=== PATIENT | female | born 1945 | race Caucasian/White ===

== ENCOUNTER → 2018-07-11 12:26 | Outpatient (CLI) | payer MEDICARE, SELFPAY ==
--- NOTE | 2018-07-11 | DI.RAD.S_ITS ---
This blank DEXA report has been sent in error by the PACS system. The correct and complete report will be forthcoming in 1-2 days. Thank you for your patience and understanding. Dictated by: Vasquez Lopez M.D. on 07/11/2018 at 13:42 Approved by: Vasquez Lopez M.D. on 07/11/2018 at 13:44
--- NOTE | 2018-07-11 | DI.MG.S_ITS ---
BILATERAL DIGITAL SCREENING MAMMOGRAM 3D/2D WITH CAD: 07/11/2018 CLINICAL: Routine screening. Comparison is made to exams dated: 04/03/2017 mammogram, 03/30/2016 mammogram, and 03/29/2015 mammogram - [facility]. The tissue of both breasts is heterogeneously dense. This may lower the sensitivity of mammography. Current study was also evaluated with a Computer Aided Detection (CAD) system. No significant masses, calcifications, or other findings are seen in either breast. There has been no significant interval change. IMPRESSION: NEGATIVE There is no mammographic evidence of malignancy. A 1 year screening mammogram is recommended.(07/12/2019) This exam was interpreted at Station ID: [id number]. NOTE: For mammograms, a report in lay terms will be sent to the patient. Approximately 15% of breast malignancies will not be visualized mammographically. In the management of a palpable breast mass, a negative mammogram must not discourage biopsy of a clinically suspicious lesion. Electronically Signed By: Norma chaudhry/irving:07/11/2018 14:38:50 letter sent: Normal Exam ACR BI-RADS Category 1: Negative [id number]
== END ==
PROVIDERS: Visit Provider Internal Medicine
DX: Z12.31 Encounter for screening mammogram for malignant neoplasm of breast (principal); M85.852 Other specified disorders of bone density and structure, left thigh; Z78.0 Asymptomatic menopausal state; Z82.62 Family history of osteoporosis; Z90.722 Acquired absence of ovaries, bilateral; Z87.891 Personal history of nicotine dependence
CPT/HCPCS: 77063; 77067; 77080

== ENCOUNTER 2018-07-19 06:08 | Emergency (ER) | payer MEDICARE, SELFPAY ==
[2018-07-19] VITALS (9 sets, daily range): BP systolic 118–127; BP diastolic 36–71; PULSE 56–66; RESP 13–17; TEMP 35.9; O2SAT 97–98; BMI 23.8
[2018-07-19] MEDS: SODIUM CHLORIDE 0.9% 1,000 ML 1000 ML IV ×2 (06:33→07:44)
[2018-07-19 06:35] LABS: Add Manual Diff / Slide Review NO; Basophils Percent Auto 1.3 % (0-2); Eosinophils Percent Auto 3.7 % (2-4); Hematocrit 37.4 % (36-46); Hemoglobin 12.4 g/dL (12.0-16.0); Lymphocytes Percent Auto 27.8 % (25-40); Mean Corpuscular HGB Conc 33.1 % (30-36); Mean Corpuscular Hemoglobin 31.2 PG (26-34); Mean Corpuscular Volume 94.2 fL (80-100); Monocytes Percent Auto 8.9 % (3-14); Neutrophils Absolute Auto 2800 /uL (3000-5900); Neutrophils Percent Auto 58.3 % (50-75); Platelet Count 226 X10^3/uL (150-400); Red Blood Cell Count 3.97 X10^6/uL (4.0-5.2); Red Cell Distribution Width 13.6 % (11.6-14.8); White Blood Cell Count 4.9 X10^3/uL (4.5-11.0)
--- NOTE | 2018-07-19 06:38 | ED_ITS ---
HPI - Dizziness <Emilia Mai DO - Last Filed: 07/19/18 18:38> General Chief Complaint: Dizziness Stated Complaint: dizzy, near syncope Time Seen by Provider: 07/19/18 06:18 Source: patient and EMS Mode of arrival: EMS Limitations: no limitations History of Present Illness HPI Narrative: Patient is a 73-year-old female who presents with dizziness and near syncope. She woke up in the middle night have a bowel movement. She says this never happens. She was on the toilet and fell extremely dizzy and lightheaded. She said was not a large bowel movement she was not straining. She did not pass out. She was extremely lightheaded. When she stood up she got extremely faint. And lowered to the ground. When EMS arrived they stood her up to try and get orthostatic vitals. Upon standing she became so weak and lightheaded they were unable to get a blood pressure is that she was lower back to the ground. She now is feeling better. She says she was feeling more dizzy with movement. She denies unilateral weakness she has not had any facial drooping or difficulty speaking. She has no heart palpitations chest pain. MD complaint: lightheadedness Related Data Home Medications Medication Instructions Recorded Confirmed Bupropion Hydrochloride mg PO QDAY #0 06/29/11 (#BUPROPION HCL) Conjugated Estrogens (ESTROGENS) mg TD #0 06/29/11 escitalopram oxalate [Lexapro] mg PO QDAY #0 06/29/11 levothyroxine [Synthroid] 0.125 mg PO #0 06/29/11 Previous Rx's Medication Instructions Recorded LIDOCAINE (LIDODERM) 1 - 3 ea TOPICAL QDAY #30 patch 07/03/16 estradiol [Vagifem] 10 mcg VG SEE INSTRUCTIONS #24 mcg 09/14/16 Allergies Allergy/AdvReac Type Severity Reaction Status Date / Time No Known Drug Allergies Allergy Verified 07/19/18 06:15 Review of Systems <DO Krystle Mendoza Last Filed: 07/19/18 18:38> Review of Systems All systems reviewed & are unremarkable except as noted in HPI and below Constitutional Denies chills, Denies fever(s), Denies frequent falls, Denies lethargy and Denies weakness ENT Ears, Nose, Mouth, and Throat: Reports dizziness Cardiovascular Reports as per HPI, Denies syncope, Denies dyspnea and Denies dyspnea on exertion Respiratory Denies cough, Denies dyspnea, Denies dyspnea on exertion and Denies wheezing Gastrointestinal Gastrointestinal: Denies abdominal pain, Denies change in bowel habits, Denies diarrhea, Denies nausea and Denies vomiting Genitourinary Denies hematuria, Denies flank pain, Denies urinary incontinence and Denies urinary urgency Musculoskeletal Denies back pain, Denies muscle weakness, Denies numbness and Denies tingling Integumentary/Breasts Denies pruritus, Denies erythema, Denies rash and Denies wounds Neurologic Reports as per HPI, Reports dizziness, Denies syncope, Denies frequent falls, Denies numbness, Denies tingling and Denies weakness Allergic/Immunologic Denies wheezing PFSH <Emilia Mai, DO - Last Filed: 07/19/18 18:38> Comment: PCP: Dr. Morfin Exam <Emilia Mai, DO - Last Filed: 07/19/18 18:38> Initial Vital Signs Initial Vital Signs: Vital Signs Temperature 96.7 F L 07/19/18 06:15 Pulse Rate 61 07/19/18 06:15 Respiratory Rate 15 07/19/18 06:15 Blood Pressure 119/36 L 07/19/18 06:15 Pulse Oximetry 97 07/19/18 06:15 GENERAL: Well-appearing, well-nourished and in no acute distress. HEENT: Head atraumatic,EOMI, pupils reactive, face symmetric, moist mucous membranes CARDIOVASCULAR: Regular rate and rhythm without murmurs, rubs or gallops. RESPIRATORY: Breath sounds equal bilaterally, no wheezes rales or rhonchi. ABDOMEN: Soft, nontender. Normoactive bowel sounds all 4 quadrants. No guarding or rebound. EXTREMITIES: Normal range of motion, no clubbing or edema. Neurovascularly intact NEUROLOGICAL: Alert and oriented x4.Normal gait and speech. Cranial nerves II through XII grossly intact. Sales Support Rep strength equal bilaterally notice our TRIA no aphasia, face is symmetric moving lower extremities equally sensation to soft touch intact SKIN: Warm, dry, no laceration, no petechiae, no rashes or lesions. <Modesto Vogt, DO - Last Filed: 07/19/18 19:18> Initial Vital Signs Initial Vital Signs: Vital Signs Temperature 96.7 F L 07/19/18 06:15 Pulse Rate 61 07/19/18 06:15 Respiratory Rate 15 07/19/18 06:15 Blood Pressure 119/36 L 07/19/18 06:15 Pulse Oximetry 97 07/19/18 06:15 Course <Emilia Mai DO - Last Filed: 07/19/18 18:38> Orders Ordered: Discontinued Medications Sodium Chloride (Normal Saline 0.9%) 1,000 mls @ 1,000 mls/hr IV CONT DEANNA Last Infusion: 07/19/18 07:39 Dose: 0 mls/hr Admin: 07/19/18 06:33 Dose: 1,000 mls/hr Sodium Chloride (Normal Saline 0.9%) 1,000 mls @ 1,000 mls/hr IV BOLUS ONE Stop: 07/19/18 08:39 Last Infusion: 07/19/18 08:45 Dose: 0 mls/hr Admin: 07/19/18 07:44 Dose: 1,000 mls/hr Ondansetron HCl (Zofran) 4 mg IV NOW ONE Stop: 07/19/18 06:28 Last Admin: 07/19/18 09:29 Dose: Not Given Vital Signs - 8 hr 07/19/18 06:15 07/19/18 06:24 07/19/18 07:50 Temperature 96.7 F L Pulse Rate 61 61 Pulse Rate [Orthostatic Lying] 59 L Pulse Rate [Orthostatic Sitting] 64 Pulse Rate [Orthostatic Standing] 66 Respiratory Rate 15 15 Blood Pressure 119/36 L 119/36 L Blood Pressure [Orthostatic Lying] 121/49 L Blood Pressure [Orthostatic Sitting] 121/71 Blood Pressure [Orthostatic Standing] 118/52 L Pulse Oximetry 97 <Modesto Vogt, DO - Last Filed: 07/19/18 19:18> Orders Ordered: Discontinued Medications Sodium Chloride (Normal Saline 0.9%) 1,000 mls @ 1,000 mls/hr IV CONT DEANNA Last Infusion: 07/19/18 07:39 Dose: 0 mls/hr Admin: 07/19/18 06:33 Dose: 1,000 mls/hr Sodium Chloride (Normal Saline 0.9%) 1,000 mls @ 1,000 mls/hr IV BOLUS ONE Stop: 07/19/18 08:39 Last Infusion: 07/19/18 08:45 Dose: 0 mls/hr Admin: 07/19/18 07:44 Dose: 1,000 mls/hr Ondansetron HCl (Zofran) 4 mg IV NOW ONE Stop: 07/19/18 06:28 Last Admin: 07/19/18 09:29 Dose: Not Given Reevaluation(s) Reevaluation #1: I have received sign out from Dr. Mai and have independently examined and interviewed the patient and . My findings are consistent with the above. Patient had a near syncopal episode with blood pressure in the 70s and was noted to be clammy. She had two large BMs of liquid stool. She denies recent travel, abx use, bad food, or exposure to ill persons. She feels MUCH better after fluid bolus. orthostatics improved. Vital Signs - 8 hr 07/19/18 06:15 07/19/18 06:24 07/19/18 07:50 Temperature 96.7 F L Pulse Rate 61 61 Pulse Rate [Orthostatic Lying] 59 L Pulse Rate [Orthostatic Sitting] 64 Pulse Rate [Orthostatic Standing] 66 Respiratory Rate 15 15 Blood Pressure 119/36 L 119/36 L Blood Pressure [Orthostatic Lying] 121/49 L Blood Pressure [Orthostatic Sitting] 121/71 Blood Pressure [Orthostatic Standing] 118/52 L Pulse Oximetry 97 MDM - Dizziness <Emilia Mai, - Last Filed: 07/19/18 18:38> Lab Data Attestation: I reviewed the patient's lab results. Result diagrams: 07/19/18 05:50 07/19/18 05:50 Lab Results 07/19/18 07/19/18 07/19/18 Range/Units 05:50 05:50 06:40 WBC 4.9 (4.5-11.0) X10^3/uL RBC 3.97 L (4.0-5.2) X10^6/uL Hgb 12.4 (12.0-16.0) g/dL Hct 37.4 (36-46) % MCV 94.2 (80-100) fL MCH 31.2 (26-34) PG MCHC 33.1 (30-36) % RDW 13.6 (11.6-14.8) % Plt Count 226 (150-400) X10^3/uL Neut % (Auto) 58.3 (50-75) % Lymph % (Auto) 27.8 (25-40) % [place] % (Auto) 8.9 (3-14) % Eos % (Auto) 3.7 (2-4) % Baso % (Auto) 1.3 (0-2) % Neut # (Auto) 2800 L (6114-0970) /uL Sodium 139 (137-145) mmol/L Potassium 3.8 (3.4-5.1) mmol/L Chloride 101 (98-107) mmol/L Carbon Dioxide 29 (22-32) mmol/L BUN 27 H (7-17) mg/dL Creatinine 0.80 (0.52-1.04) mg/dL Estimated GFR > 60.0 (>60) mL/min BUN/Creatinine Ratio 33.8 H (6-22) Glucose 110 (80-110) mg/dL Lactate 0.7 (0.7-2.1) mmol/L Calcium 9.3 (8.4-10.2) mg/dL Total Bilirubin 0.2 (0.2-1.3) mg/dL AST 25 (14-36) IU/L ALT 22 (9-52) IU/L Alkaline Phosphatase 64 (38-126) U/L Total Protein 7.0 (6.3-8.2) g/dL Albumin 4.2 (3.5-5.0) g/dL Globulin 2.8 (1.7-4.1) g/dL Albumin/Globulin Ratio 1.5 (1.0-2.8) ECG Data Attestation: I personally reviewed and interpreted this ECG as follows: Prior ECG tracings: available for review Interpretation: Normal sinus rhythm rate 54 GA interval 186 is, QRS 92, QTC [address] elevation or ST depression or T-wave inversions similar to previous EKG in 2011 MDM Narrative Medical decision making narrative: Patient signed out to Dr. Vogt for further management. Anticipate discharge home <Modesto Vogt, - Last Filed: 07/19/18 19:18> Lab Data Lab Results 07/19/18 07/19/18 07/19/18 Range/Units 05:50 05:50 06:40 WBC 4.9 (4.5-11.0) X10^3/uL RBC 3.97 L (4.0-5.2) X10^6/uL Hgb 12.4 (12.0-16.0) g/dL Hct 37.4 (36-46) % MCV 94.2 (80-100) fL MCH 31.2 (26-34) PG MCHC 33.1 (30-36) % RDW 13.6 (11.6-14.8) % Plt Count 226 (150-400) X10^3/uL Neut % (Auto) 58.3 (50-75) % Lymph % (Auto) 27.8 (25-40) % [place] % (Auto) 8.9 (3-14) % Eos % (Auto) 3.7 (2-4) % Baso % (Auto) 1.3 (0-2) % Neut # (Auto) 2800 L (2584-7823) /uL Sodium 139 (137-145) mmol/L Potassium 3.8 (3.4-5.1) mmol/L Chloride 101 (98-107) mmol/L Carbon Dioxide 29 (22-32) mmol/L BUN 27 H (7-17) mg/dL Creatinine 0.80 (0.52-1.04) mg/dL Estimated GFR > 60.0 (>60) mL/min BUN/Creatinine Ratio 33.8 H (6-22) Glucose 110 (80-110) mg/dL Lactate 0.7 (0.7-2.1) mmol/L Calcium 9.3 (8.4-10.2) mg/dL Total Bilirubin 0.2 (0.2-1.3) mg/dL AST 25 (14-36) IU/L ALT 22 (9-52) IU/L Alkaline Phosphatase 64 (38-126) U/L Total Protein 7.0 (6.3-8.2) g/dL Albumin 4.2 (3.5-5.0) g/dL Globulin 2.8 (1.7-4.1) g/dL Albumin/Globulin Ratio 1.5 (1.0-2.8) Discharge Plan Departure Patient Disposition: Home Clinical Impression: Diarrhea, Vaso vagal episode Discharge Date/Time: 07/19/18 09:32 Interventions: ED Discharge Assessment Last Done: 07/19/18 09:30 Instructions: Diarrhea Activity Restrictions/Additional Instructions: 1. Drink plenty of fluids with frequent small sips. 2. For the next 24 hours a clear liquid diet is advised. After that please employ a brat diet which would include bananas, rice, apples, toast. 3. Please continue to take your medications as directed. 4. Please follow-up with your doctor in the next 1-2 days. Call the office for an appointment. 5. Please return to the emergency Department for any worsening or persistent symptoms, such as pain, fever, or other bothersome symptoms Prescriptions: No Action levothyroxine [Synthroid] 125 MCG tablet 0.125 mg PO Qty: 0 RF: 0 escitalopram oxalate [Lexapro] 5 MG tablet PO QDAY Qty: 0 RF: 0 Bupropion Hydrochloride (#BUPROPION HCL) PO QDAY Qty: 0 RF: 0 Conjugated Estrogens (ESTROGENS) TD Qty: 0 RF: 0 LIDOCAINE (LIDODERM) 1 - 3 ea Topical QDAY Qty: 30 RF: 0 estradiol [Vagifem] 10 MCG tablet 10 mcg VG SEE INSTRUCTIONS Qty: 24 RF: 0
[2018-07-19 06:44] LABS: Alanine Aminotransferase 22 IU/L (9-52); Albumin 4.2 g/dL (3.5-5.0); Albumin Globulin Ratio 1.5 (1.0-2.8); Alkaline Phosphatase 64 U/L (38-126); Aspartate Aminotransferase 25 IU/L (14-36); BUN Creatinine Ratio 33.8 (6-22); Bilirubin Total 0.2 mg/dL (0.2-1.3); Blood Urea Nitrogen 27 mg/dL (7-17); Calcium 9.3 mg/dL (8.4-10.2); Carbon Dioxide 29 mmol/L (22-32); Chloride 101 mmol/L (98-107); Estimated Glomerular Filt Rate > 60.0 mL/min (>60); Globulin 2.8 g/dL (1.7-4.1); Glucose 110 mg/dL (80-110); HEMOLYSIS 16 (0-50); Potassium 3.8 mmol/L (3.4-5.1); Sodium 139 mmol/L (137-145)
--- NOTE | 2018-07-19 06:48 | PC.NURSE ---
pt c/o near syncope episodes x2 this am. pt states she got up to use the bathroom this morning when episodes occurred. pt states she was having bm this. per medics pt had hypotention while laying on the floor, they attempted to stand her up when she almost had a syncople episode.
[2018-07-19 06:58] LABS: Lactate (Lactic Acid) 0.7 mmol/L (0.7-2.1)
== END 2018-07-19 09:32 | disposition home or self-care (01) ==
PROVIDERS: Emergency Medicine; Emergency Provider Emergency Medicine
DX: R55 Syncope and collapse (principal); R19.7 Diarrhea, unspecified
CPT/HCPCS: 36415; 80053; 83605; 85025; 93005; 93010; 93041; 96360; 96361; 99284; 99285

== ENCOUNTER → 2018-10-03 11:33 | Outpatient (CLI) | payer MEDICARE, SELFPAY ==
[2018-10-03 12:34] LABS: Hematocrit 38.1 % (36-46); Mean Corpuscular HGB Conc 34.1 % (30-36); Mean Corpuscular Hemoglobin 31.3 PG (26-34); Mean Corpuscular Volume 91.8 fL (80-100); Platelet Count 216 X10^3/uL (150-400); Red Blood Cell Count 4.15 X10^6/uL (4.0-5.2); Red Cell Distribution Width 13.9 % (11.6-14.8); White Blood Cell Count 6.2 X10^3/uL (4.5-11.0)
[2018-10-03 13:17] LABS: Blood Urea Nitrogen 20 mg/dL (7-17); Calcium 9.4 mg/dL (8.4-10.2); Carbon Dioxide 28 mmol/L (22-32); Chloride 99 mmol/L (98-107); Estimated Glomerular Filt Rate > 60.0 mL/min (>60); Glucose 92 mg/dL (80-110); HEMOLYSIS < 15 (0-50); Potassium 4.5 mmol/L (3.4-5.1); Sodium 139 mmol/L (137-145)
== END ==
PROVIDERS: PCP Internal Medicine; Visit Provider Orthopaedic Surgery Orthopaedic Surgery of the Spine
DX: Z01.818 Encounter for other preprocedural examination (principal)
CPT/HCPCS: 36415; 80048; 85027; 93005

== ENCOUNTER → 2018-11-20 15:52 | Outpatient (CLI) | payer MEDICARE, SELFPAY ==
[2018-11-20 16:21] LABS: Appearance Urine UA CLEAR; Bilirubin Urine UA NEGATIVE (NEGATIVE); Color Urine UA YELLOW; Glucose Urine UA NEGATIVE (Negative); Ketones Urine UA NEGATIVE (NEGATIVE); Leukocyte Esterase Urine UA TRACE (NEGATIVE); Nitrite Urine UA NEGATIVE (Negative); Occult Blood Urine UA TRACE-INTACT (Negative); Protein Urine UA NEGATIVE (Negative); Specific Gravity Urine UA 1.015 (1.000-1.035); Urobilinogen Urine UA 0.2 E.U./dL (0.2)
[2018-11-20 16:44] LABS: Add Manual Diff / Slide Review NO; Basophils Absolute Auto 100 /uL (0-100); Basophils Percent Auto 1.3 % (0-2); Eosinophils Absolute Auto 100 /uL (0-450); Eosinophils Percent Auto 2.3 % (2-4); Hemoglobin 12.3 g/dL (12.0-16.0); Lymphocytes Absolute Auto 1100 /uL (1100-4500); Lymphocytes Percent Auto 19.4 % (25-40); Mean Corpuscular HGB Conc 33.3 % (30-36); Mean Corpuscular Hemoglobin 30.6 PG (26-34); Mean Corpuscular Volume 91.9 fL (80-100); Monocytes Absolute Auto 400 /uL (0-900); Monocytes Percent Auto 7.3 % (3-14); Neutrophils Absolute Auto 4100 /uL (1500-7000); Neutrophils Percent Auto 69.7 % (50-75); Platelet Count 242 X10^3/uL (150-400); Red Blood Cell Count 4.03 X10^6/uL (4.0-5.2); Red Cell Distribution Width 14.2 % (11.6-14.8); White Blood Cell Count 5.8 X10^3/uL (4.5-11.0)
[2018-11-20 17:22] LABS: Bacteria Urine Few (2-10); RBC Urine 0-1/HPF (0-5/HPF); WBC Urine 1-5/HPF (0-5/HPF)
[2018-11-20 17:57] LABS: Blood Urea Nitrogen 29 mg/dL (7-17); Calcium 9.5 mg/dL (8.4-10.2); Carbon Dioxide 25 mmol/L (22-32); Chloride 100 mmol/L (98-107); Estimated Glomerular Filt Rate 54.2 mL/min (>60); Glucose 93 mg/dL (80-110); HEMOLYSIS 44 (0-50); Potassium 4.7 mmol/L (3.4-5.1); Sodium 135 mmol/L (137-145)
== END ==
PROVIDERS: PCP Internal Medicine; Visit Provider Orthopaedic Surgery Orthopaedic Surgery of the Spine
DX: Z01.818 Encounter for other preprocedural examination (principal); N39.0 Urinary tract infection, site not specified
CPT/HCPCS: 36415; 80048; 81001; 85025; 93005

== ENCOUNTER 2018-11-26 07:29 | Inpatient (IN) | payer MEDICARE, SELFPAY ==
[2018-11-11 10:44] VITALS: BMI 23.3
[2018-11-26] VITALS (16 sets, daily range): BP systolic 84–127; BP diastolic 38–72; PULSE 65–92; RESP 10–19; TEMP 36–36.4; O2SAT 93–100; BMI 23.3
[2018-11-26] MEDS: LACTATED RINGERS 1,000 ML 42 ML IV ×3 (08:00→12:50)
--- NOTE | 2018-11-26 08:36 | PM.PREOP ---
Pre-operative Note Interval Note History & Physical reviewed/Exam performed by Physician: Yes Changes to H&P: No
[2018-11-26] MEDS: MIDAZOLAM 2 MG/2 ML VIAL IV (08:42)
[2018-11-26] MEDS: CEFAZOLIN 2 GM/100 ML FROZ.PIGGY IV ×2 (08:54→16:54)
--- NOTE | 2018-11-26 09:37 | SUR.OPER ---
Prone on spine table, head in foam head support, padded chest and pelvic supports, gel pad at knees, lower legs supported by pillows; nipples, genitalia and toes free of pressure, arms secured on foam padded arm boards at <90 degrees abduction. Tape over blanket at thigh secured to table.
[2018-11-26] MEDS: BUPIVACAINE LIPOSOME 266 MG/20 ML VIAL INJ (09:45)
[2018-11-26] MEDS: BUPIVACAINE 0.25% W/ EPI VIAL 30 ML INJ (09:48)
[2018-11-26] MEDS: SCOPOLAMINE 1 PATCH TOP (09:48)
--- NOTE | 2018-11-26 13:44 | DI.RAD.S_ITS ---
PROCEDURE: XR LUMBAR SPINE 2-3V INDICATIONS: L3-4 L4-5, L5-S1 TLIF TECHNIQUE: 2 views of the lumbar spine were acquired. COMPARISON: [facility], XR LUMBAR SPINE 2 OR 3 VIEWS, 09/19/2018, 14:48. FINDINGS: Bones: 5 [id number] vertebrae are present. There is normal bony alignment established after placement of transverse pedicle screws and vertical fixation rods spanning the L3-S1 levels with interbody disc cage prosthesis devices placed at L3-4, L4-5, and L5-S1 in expected positions. No vertebral body compression fractures. No suspicious bony lesions. Soft tissues: Overlying bowel gas pattern is normal. No suspicious soft tissue calcifications. IMPRESSION: Normal alignment established after TLIF from L3-S1 with interbody disc prosthesis placement and posterior fixation. Dictated by: Bruno Lowe M.D. on 11/26/2018 at 14:43 Approved by: Bruno Lowe M.D. on 11/26/2018 at 14:45
--- NOTE | 2018-11-26 13:53 | PM.OP.1 ---
Operative Date/Time/Diagnoses Date of procedure: 11/26/18 Time of procedure: 09:10 Pre-op diagnosis: 1. Lumbar scoliosis 2. Lumbar spondylolisthesis 3. Lumbar spinal stenosis with radiculopathy L3-S1 Post-op diagnosis: same Procedure & Clinicians Procedure: 1. L3-4, L4-5, L5-S1 Postero-lateral and posterior interbody fusion 2. L3-4, L4-5, L5-S1 interbody cage placement. 3. L3-4, L4-5, L5-S1 decompressive laminectomy with bilateral facetecomies 4. L3-4, L4-5, L5-S1 Posterior segmental instrumentation 5. Orchard of bone marrow from iliac crest 6. Utilization of microsurgical technique and operating microscope Same procedure as scheduled: Yes Indications: Patient has been having chronic back pain and worsening lumbar radiculopathy. Patient failed multiple conservative management with worsening pain weakness and numbness in her lower extremity. Patient has been having difficulty performing activity of daily living. After discussing risks benefits of treatment options, patient elected proceed with surgery. Surgeon: Bindu Palma Trim And Burr Operator: Belén Vasquez Click Yes if Unassisted: No Anesthesia Type: General Operative Notes Closure Type: primary Specimen(s): none sent Prosthetic devices, grafts, tissues, transplants, or devices: Globus revolve screws, Rise cages Applied: catheter Estimated Blood Loss (mL): 230 Blood products transfused: none Procedure in detail: Patient was seen in the preoperative area. Risks and benefits of the surgery was discussed with the patient. Informed consent was obtained from the patient and placed in the chart. Surgical site was marked. Patient was taken to the operative room. General anesthesia was administered. Prophylactic antibiotic was given to the patient less than 30 min before the incision was made. Patient was placed into a prone position on the Stiven table. Patient's back was then prepped and draped in the sterile fashion. Time-out was performed at this time. Using AP and lateral C-arm imaging the interval between L3-S1 was identified and marked on patient's back. A 3 inch incision 2 in from midline was made on the left side first. The fascia was incised in line with skin incision. Globus MARS retractors was placed inside the incision and docked onto the L3, L4 and L5 lamina. Using microsurgical technique and operating microscope, a L3, L4 and L5 laminectomy and L3-4, L4-5 L5-S1 facetectomy was performed using a Kerrison rongeur. The disc space at L3-4, L4-5, L5-S1 was identified. Patient was found have severe neural foramen stenosis at all 3 levels during the process of decompression which were all fully decompressed after the decompression was completed. More than 75% of the facet joints was removed during the process of decompression further requiring the fusion procedure due to the instability after the facetectomy. And a total diskectomy was performed at L3-4, L4-5, L5-S1 level. The endplates were decorticated using a rasp and shaver. The total diskectomy and decortication was performed at L3-4, L4-5, L5-S1 level in order to to accomplish a L3-4, L4-5, L5-S1 fusion. The local bone from the laminectomy and facetectomy was saved for local bone grafting. After the total diskectomy and decortication was completed, Globus viacell bone graft material was combined with local bone that was harvested earlier. At this time, a separate skin is incision was made over the iliac crest. A Jamshidi needle was inserted into the iliac crest through a separate skin incision. 5 cc of bone marrow aspiration was obtained through the separate skin incision using a Jamshidi needle from the iliac crest. The bone marrow aspiration was combined with local bone and the via cell bone grafting material. The bone grafting material was placed into the L3-4, L4-5, L5-S1 interbody space along with three cages, one expandable cage at each level. The cages were expanded to their maximum height using the torque limiting screwdriver. At this time a mirror image incision was made on the right side. The fascia was incised in line with the skin incision. Globus MARS retractor was inserted and docked onto the L3-4, L4-5, L5-S1 posterolateral gutter. Using the power drill, posterior-lateral decortication was performed at L3-4, L4-5, L5-S1 level until bleeding cortical bone was identified. The remaining bone grafting material was placed into the L3-4, L4-5 L5-S1 posterior lateral gutter he order to accomplish posterolateral fusion at the L3-4, L4-5 L5-S1 levels. Using the double C-arm technique, pedicle screws were placed into the L3, L4, L5, S1 pedicles bilaterally. This was done by placing the Jamshidi needle into the pedicles, then placing the guidewires over the Jamshidi needle, and finally placing the cannulated screws over the guidewires bilaterally. After the pedicle screws were placed, 2 titanium rods was locked into the heads of the pedicle screws using locking caps and torque limiting screwdriver. Total 8 pedicles screws were placed. After all the hardware was placed, and confirmed with AP and lateral C-arm imaging, the wound was then irrigated with sterile normal saline and packed with Ray-Rema gauze for 3 min to accomplish hemostasis. After the gauze was removed the deep fascia was closed with #1 Vicryl suture. The subcutaneous layer was closed with 2-0 Vicryl. The skin was closed with skin sommer. Patient tolerated the procedure well. There were no complications. Complications: none Condition: stable Disposition: PACU Plan for aftercare: Admit to inpatient hospital
--- NOTE | 2018-11-26 14:33 | SUR.PHASEI ---
Report called to ICU. Patient sleeping, arouses occasionally. BP cuff on upper arm; patient lying on her right side, supported by pillows.
--- NOTE | 2018-11-26 14:35 | SUR.PHASEI ---
does not acknowledge need for pain med. turned to right side (patient moving independently.)
--- NOTE | 2018-11-26 14:57 | SUR.PHASEI ---
1442 TO ICU 103. Patient awake/drowsy, responsive to questions. Resp unlabored, skin warm and dry. Back dressing remains CDI. Pillows @ back and between knees from the PACU to ICU. Sparks to gravity. Clothing taken to room. Stable. No questions/concerns from staff.
[2018-11-26] MEDS: SODIUM CHLORIDE 0.9% 1,000 ML 100 ML IV (15:20)
--- NOTE | 2018-11-26 15:27 | PC.NURSE ---
Rec'd pt from PACU at 1450. Pt is drowsy with brief eye opening to verbal stimuli. Oriented to person/place. Reports pain but quickly drifts back to sleep with decreased stimuli. Lungs are clear but diminished. Respirations are shallow and 12-14 with SPO2 92-93% on RA. Back dsg CDI. DPP bilaterally and pt has good sensation and movement to BLE. Initiated IVFs and bilat foot SCDs. at bedside. Report given to oncoming RN. ANKUR.
[2018-11-26] MEDS: ONDANSETRON 4 MG/2 ML INJ IV (15:48)
[2018-11-26] MEDS: HYDROMORPHONE 1 MG INJ 0.5 MG IV ×3 (17:07→22:09)
--- NOTE | 2018-11-26 19:40 | PC.NURSE ---
1545 - Pt drowsy. C/o nausea following reposition. Zofran given. Pt reports pain, however drifts off to sleep with conversation. 89% on RA, placed on 2L, awaiting increased wakefulness prior to administration of pain rx. Monitor. 1715 - Pt reposition multiple times. Ice pack not effective with pain control. Mild nausea persists, pt declines po intake more than a few ice chips. Dilaudid given. Monitor. (recheck of VS following administration, VSS, pt tolerated well.) 1915 - Pt again c/o of significant discomfort. Repositioned. this is terrible. I didn't know it was going to be like this. I have never had this kind of pain before. Pt c/o sharp muscle or nerve type pain to bilateral hips right > left. Continues to report mild nausea, declines po intake. Unable to give po r/t nausea. Dilaudid given for pain. Call light in reach.
--- NOTE | 2018-11-26 22:44 | PC.NURSE ---
pt arrived in unit around 2014. Pt A&OX3. 97% RA. cont. pulse ox on. pt slightly nauseous. pt rates her pain 04/15. administered IV dilaudid. lower back dressing cdi. IVF infusing. call light in reach. bed alarm active. physical assessment reviewed by this RN.
[2018-11-26] MEDS: OXYCODONE IR 5 MG TABLET 10 MG PO (23:27)
[2018-11-27] VITALS (9 sets, daily range): BP systolic 106–129; BP diastolic 43–64; PULSE 69–86; RESP 15–18; TEMP 36.3–36.8; O2SAT 98–100
[2018-11-27] MEDS: CEFAZOLIN 2 GM/100 ML FROZ.PIGGY IV (00:48)
[2018-11-27] MEDS: SODIUM CHLORIDE 0.9% 1,000 ML 100 ML IV (03:15)
[2018-11-27] MEDS: HYDROMORPHONE 1 MG INJ 0.5 MG IV (03:17)
[2018-11-27 05:30] LABS: Hematocrit 28.6 % (36-46); Hemoglobin 9.5 g/dL (12.0-16.0)
--- NOTE | 2018-11-27 05:45 | PC.NURSE ---
Patient is alert and oriented. Has received po pain med, and IV pain med. No nausea for this shift reported. Sparks had 250 ml out, oral intake is 300 for shift. Able to rest off and on in between cares. Attempts made to cluster cares when possible. Declined am dose of levothyroxine, concerned she will be charged $250.00 for medication. She stated that has happened to her before.
--- NOTE | 2018-11-27 07:31 | PM.PNPO.1 ---
Subjective Date Patient Seen: 11/27/18 Interval history: Patient seen bedside s/p L3-4,L4-5,L5-S1 TLIF. Patient is POD #1. Patient is doing well, her pain is controlled and she denies CP, SOB, N/V. She has not yet worked with PT. Exam Vital Signs (past 8 hours): - 11/27/18 00:55 11/27/18 04:44 Temperature 98.3 F 97.8 F Pulse Rate 77 80 Respiratory Rate 15 16 Blood Pressure 116/51 L 111/52 L Pulse Oximetry 100 100 Oxygen Delivery Method Nasal Cannula Oxygen Flow Rate 2 Narrative Exam Narrative: WDWN NAD A&Ox3. Dressing on lumbar spine CDI, ROM of BLE intact. NVI in BLE. Calves are soft and compressible. No focal deficits noted. Objective Labs Result Diagrams: 11/27/18 05:12 Labs: Laboratory Results - last 24 hr 11/27/18 05:12 Hgb 9.5 L Hct 28.6 L Assessment & Plan Post-op Postoperative Procedures Operation Date: 11/26/18 08:45 Actual Procedures Side Surgeon p L3-4,L4-5,L5-S1 TLIF w/Postrior Instru. Not Applicable Bindu Palma MD 1. POD #1 s/p above procedure-patient is doing well, continue with pain management and PT. Dispo-d/c home once pain is controlled and she is ambulating well with PT. Quality VTE Deep Vein Thrombosis/Pulmonary Embolism Present on Admission: No
[2018-11-27] MEDS: OXYCODONE IR 5 MG TABLET 10 MG PO ×6 (07:42→23:24)
[2018-11-27] MEDS: ACETAMINOPHEN 325 MG TABLET 650 MG PO ×3 (07:43→23:49)
[2018-11-27] MEDS: DEXAMETHASONE 4 MG TABLET 8 MG PO (08:19)
--- NOTE | 2018-11-27 09:11 | CM.DANOTE ---
DCP: Case received, EMR reviewed and met with patient. Introduced self and role. DCP template completed with information currently available. Patient is a 73 year old female who admitted yesterday morning to the care of the surgical team. PCP: Dr. Morfin. Payer: confirmed: Medicare/[employer]. Patient had procedure done today. She had L3-4, L4-5, L5-S1, Posterio Lateral Interbody Fusion. Patient has history of Lumbar Scoliosis, with chronic back pain. She stated that she has had back surgery before. Met with patient in room, pleasant, alert and oriented. Lives in [facility] with her , Jesus. Stated that she is independent at home, and currently uses no walker or cane. Confirmed with her that her primary doctor is Dr. Morfin. Patient has not yet been up working with physical therapy, and she stated, she has no concerns about going home after her surgery. P: DCP to continue to assess. Patient has not been up with physical therapy yet. She should be able to return home when she is stable enough for discharge. Antonia Car RN/Home Care Provider
--- NOTE | 2018-11-27 09:30 | PC.NURSE ---
0700- Safe handoff from NOC RN. Pt c/o severe pain at surgical site. Sparks catheter in place draining pale, yellow urine. IV infusing normal saline per orders as pt's BP is still low & she is not taking in adequate PO intake. 4 eyes on surgical dressing at spine. Pt states her left leg is numb; PA aware and PO Decadron ordered. 0745- Medicated w/ PO oxycodone & tylenol for surgical pain. Pt instructed to log roll. 0900- Refusing to take hospital meds as she states I will get billed too much at home so I don't want to take the hospital medications'. Pt instructed NOT to take her own home medications for risk of harm. Pt agreed to this. PT in room working with patient. 1015- Working w/ PT; when in standing position pt felt weak & dizzy. Machine would not register BP while standing but pt's BP was 106/43 sitting down and 112/55 when laying back down in bed. GISELLE Alonzo aware of symptomatic episode--NS bolus ordered and hung. Will cont to monitor. 1100- BP stabilized to 128/64. PO pain meds given for 8/10 surgical site pain. 1130- BP stable; IV fluids shut off per orders.
--- NOTE | 2018-11-27 09:36 | PT.IIE ---
Current Diagnoses Other idiopathic scoliosis, lumbar region (11/26/18) Spinal stenosis, lumbar region without neurogenic claudication (11/26/18) Other specified postprocedural states (11/26/18) Surgery Performed Operation Date: 11/26/18 08:45 Actual Procedures p L3-4,L4-5,L5-S1 TLIF w/Postrior Instru.(Not Applicable) - Bindu Palma MD Surgical History (Last Updated 11/11/18 @ 11:20 by Becca Zavala RN) History of bilateral tubal ligation (Acute) Hx of appendectomy (Acute) Hx of dilation and curettage (Acute) Hx of eye surgery (Acute ~2009) Hx of laminectomy (Acute 11/18/17) S/P epidural steroid injection (Acute) Medical History (Last Updated 11/11/18 @ 11:20 by Becca Zavala RN) Depression (Acute) Elevated cholesterol (Acute) Hypothyroid (Acute) Near syncope (Acute) Trochanteric bursitis of both hips (Acute) Physical Therapy Inpatient Evaluation/Re-Eval M1 PT/OT-IP Prior Functional Status Start: 11/27/18 11:43 Freq: NEEDED Status: Active Protocol: Document 11/27/18 09:36 AB (Rec: 11/27/18 11:56 AB [id number]) Medical Review Prior Functional Status Medical History Reviewed Yes Communication able to make needs known Mobility and Gait pt stated that she is independent with all mobilities and ambulation without AD Social History Household Members spouse Living Arrangements House Number of Floors (Floors) One Floor Number of Stairs To Enter/Railing? 4 steps to enter with R rail ascending Home Environment High Toilet Walk in Shower Home Equipment Front Wheel Walker Hand Held Shower Employment Status Retired M2 PT-IP Current Condition Start: 11/27/18 11:43 Freq: NEEDED Status: Active Protocol: Document 11/27/18 09:36 AB (Rec: 11/27/18 11:56 AB [id number]) Physical Therapy Current Condition Current Condition Evaluation Date 11/27/18 Treatment Diagnosis s/p L3-S1 fusion/lami; difficulty in walking Onset Date 11/26/18 Precautions Lumbar Precautions Log Roll No Twisting Limit Bending Lifting Restriction of 10 lbs Gait Belt above Incisional Area Other Precautions BP; h/o vasovagal episode M3 PT-IP Subjective Start: 11/27/18 11:43 Freq: NEEDED Status: Active Protocol: Document 11/27/18 09:36 AB (Rec: 11/27/18 11:56 AB [id number]) Subjective Physical Therapy Visit Type Type Initial Evaluation Visit Start Time 09:36 Visit Stop Time 10:25 Total Visit Minutes 49 Number of THERAPEUTIC RECREATION SPECIALIST Visits 0 Physical Therapy Visit Comments Patient Comments pt agreeable to do PT Therapy Pain Assessment Pain When Pain Assessed At Rest Pain Present Pain Present Pain Reported Location Back Intensity 8 Scale Used Numeric (1 - 10) Pain Management Techniques Re-positioning Timing of Activity with Medications M4 PT-IP Mobility and Gait Start: 11/27/18 11:43 Freq: NEEDED Status: Active Protocol: Document 11/27/18 09:36 AB (Rec: 11/27/18 11:56 AB [id number]) PT-Bed Mobility Assessment Rolling Type of Rolling Log Rolling Supine to Sit Supine to Sit Moderate Assistance 1 Person Assistance Sit to Supine Sit to Supine Maximum Assistance 1 Person Assistance PT-Transfer Assessment Sit to and From Stand Sit to and from Stand Maximum Assistance 1 Person Assistance Use of Upper Extremities Comments Mobility Comments BP in supine: 118/49 [place] 73. pt completed log roll supine to sit mod A and max cues for techniques. pt was able to sit on EOB CGA. c/o dizziness . BP: 108/45 KS 75. pt sat on EOB for ~ 1-2 more minutes. attempted sit to stand requiringmax A but pt unable to complete and stated that dizziness is worse. attempted to get another BP but unable . assisted pt to supine requiring max A and max cues. BP checked in supine. 111/52. positioned pt in bed. nurse in room. call light and table placed within reach. Gait Assessment Comments Gait Comments unable at this time PT-Balance Assessment Sitting Balance and Reactions Static Sitting Balance Ability Fair Dynamic Sitting Balance Ability Fair M5 PT-IP Objective Assessments Start: 11/27/18 11:43 Freq: NEEDED Status: Active Protocol: Document 11/27/18 09:36 AB (Rec: 11/27/18 12:00 AB [id number]) Orientation Orientation/Cognition Level of Alertness Alert Orientation Name Age Birthday Month Date Year Day of Week Place Situation Safety Awareness Understands Safety Issues Memory Description No Deficits Noted Gross Range of Motion Lower Extremity ROM Assessment Within Functional Limits Strength Lower Extremity Strength Assessment Left Impaired Knee 3+/5 Coordination Assessment Gross Coordination Gross Coordination WNL Sensation Assessment Sensation Gross Sensation WNL Muscle Tone Muscle Tone WNL Yes M6 PT-IP Treatment Start: 11/27/18 11:43 Freq: NEEDED Status: Active Protocol: Document 11/27/18 09:36 AB (Rec: 11/27/18 12:00 AB [id number]) Physical Therapy Treatment Education Education Provided Precautions Weight Bearing Status Post-Op Packet Safety M7 PT-IP Assessment and Plan Start: 11/27/18 11:43 Freq: NEEDED Status: Active Protocol: Document 11/27/18 09:36 AB (Rec: 11/27/18 12:00 AB [id number]) PT Summary Assessment and Plan Potential Rehabilitation Potential Fair Status of Condition at Evaluation Evolving Summary Impairments Pain ROM Strength Balance Coordination Sensation Tone Cognition Bed Mobility Transfers Gait Activity Tolerance Assessment Summary pt unable to tolerate much activity this morning with d/o dizziness. will continue to assess progress. pt plans to go home and spouse will assist pt at home. Goals Bed Mobility Goal Standby Assistance Transfer Goal Standby Assistance Front Wheeled Walker Gait Goal Standby Assistance Front Wheel Walker Gait Distance 150 Other Goals up/down 4 steps with R rail ascending SBA Days to Meet Goals 5 Frequency of Treatment Frequency Of Treatment Twice a Day Treatment Plan Physical Therapy Treatment Plan Bed Mobility Training Transfer Training Gait Training Therapeutic Exercise Balance Retraining Post Op Education Discharge Planning Hot or Cold Pack Neuromuscular Re-ed Coordination Retraining Manual Therapy Other Recommendations and Next Treatment transfers, ambulation, bed Focus mobility, caregiver training Recommendations To Nursing Amount of Assist Needed 2 Person Assist Discharge Recommendations PT Discharge Recommendations Home with 24/7 Assist SNF Rehab Other Discharge Recommendations depending on progress: home with 24/7 assist vs SNF
[2018-11-27] MEDS: SODIUM CHLORIDE 0.9% 1,000 ML 1000 ML IV (10:35)
--- NOTE | 2018-11-27 12:49 | PC.NURSE ---
patient reports pain improved to 4/10. brushing her teeth in bed. patient is no longer hypotensive after given bolus this am. see emar.
[2018-11-27] MEDS: DEXAMETHASONE 4 MG TABLET PO ×2 (14:11→21:48)
--- NOTE | 2018-11-27 15:10 | OT.IP.EVAL ---
Current Diagnoses Other idiopathic scoliosis, lumbar region (11/26/18) Spinal stenosis, lumbar region without neurogenic claudication (11/26/18) Other specified postprocedural states (11/26/18) Surgery Performed Operation Date: 11/26/18 08:45 Actual Procedures p L3-4,L4-5,L5-S1 TLIF w/Postrior Instru.(Not Applicable) - Bindu Palma MD Past Medical History (Last Updated 11/11/18 @ 11:20 by Becca Zavala RN) Depression (Acute) Elevated cholesterol (Acute) Hypothyroid (Acute) Near syncope (Acute) Trochanteric bursitis of both hips (Acute) Surgical History (Last Updated 11/11/18 @ 11:20 by Becca Zavala RN) History of bilateral tubal ligation (Acute) Hx of appendectomy (Acute) Hx of dilation and curettage (Acute) Hx of eye surgery (Acute ~2009) Hx of laminectomy (Acute 11/18/17) S/P epidural steroid injection (Acute) Occupational Therapy Inpatient Evaluation/Re-Eval M1 PT/OT-IP Prior Functional Status Start: 11/27/18 11:43 Freq: NEEDED Status: Active Protocol: Document 11/27/18 15:10 PJM (Rec: 11/27/18 17:52 PJM [id number]) Medical Review Prior Functional Status Medical History Reviewed Yes Diet/Fluid Consistency Regular Communication WNL Mobility and Gait Pt stated that she is independent with all mobilities and ambulation without AD Activities of Daily Living and IADL's Pt independent with all self care. does most IADLS and driving as pt limited by low back pain. Prior Functional Level (Other details) Supportive can provide 24 hr assist at d/c. Social History Household Members spouse Living Arrangements House Number of Floors (Floors) One Floor Number of Stairs To Enter/Railing? 4 steps to enter with R rail ascending Home Environment High Toilet Walk in Shower Home Equipment Front Wheel Walker Hand Held Shower Employment Status Retired Additional Social History Comment Pt plans to obtain shower seat with back and armrests. Resources given. No threshold on shower. M2 OT-IP Current Condition Start: 11/27/18 17:40 Freq: Status: Active Protocol: Document 11/27/18 15:10 PJM (Rec: 11/27/18 17:52 PJM [id number]) Occupational Therapy Current Condition Current Condition Evaluation Date 11/27/18 Treatment Diagnosis decreased slef care, mobility s/p L3-S1 PLIF Post Operative Precautions Lumbar Precautions Log Roll No Twisting Limit Bending Lifting Restriction of 10 lbs Gait Belt above Incisional Area M3 OT- IP Subjective and Pain Start: 11/27/18 17:40 Freq: Status: Active Protocol: Document 11/27/18 15:10 PJM (Rec: 11/27/18 17:52 PJ [id number]) OT- Subjective Occupational Therapy Visit Type Type Initial Evaluation Visit Start Time 14:47 Visit Stop Time 15:10 Total Visit Minutes 23 Notes Pt has been hypotensive and declined OOB this session; awaiting second P.T. session. Occupational Therapy Visit Comments Patient/Caregiver Goals to go home and be able to complete daily activities with less back pain OT Pain Assessment Pain When Pain Assessed At Rest Pain Present Pain Present Pain Reported Location Back Intensity 4 Scale Used Numeric (1 - 10) Description Aching Acute M4 OT- IP ADL's Start: 11/27/18 17:40 Freq: Status: Active Protocol: Document 11/27/18 15:10 PJM (Rec: 11/27/18 17:52 PJ [id number]) OT [id number] General Evaluation Self-Feeding Ability Independent OT ADL-Grooming General Evaluation Grooming Ability Independent Areas Needing Assistance Retrieving/Set-up of Grooming Items Comments OT Grooming Comments after set up in bed OT ADL-Oral Care General Eval Oral Care Ability Standby Assistance Areas of Assistance Brushing Teeth Comments Oral Care Comments after set up in bed OT ADL-Dressing General Eval Lower Body Dressing Ability Maximum Assistance Assistive Devices Dressing Assistive Devices Long Handled Shoe Horn Comments OT Dressing Comments Provided long shoe horn at pt request as she wears slip on shoes. Pt states she rarely wears socks so declines sock aid. Pt agreed to try business services vice president for lower body dressing in AM. Hypotension limited OOB activity today. OT ADL-Toileting General Evaluation Toileting Ability Total Assistance Areas Needing Assistance Empty Catheter or Colostomy Comments OT Toileting Comments pt still has thorne in place OT ADL-Bathing Comments OT Bathing Comments to be assessed as activity tolerance improves M5 OT- IP IADL's Start: 11/27/18 17:40 Freq: Status: Active Protocol: Document 11/27/18 15:10 PJM (Rec: 11/27/18 17:52 PJ [email or web address]) OT-Instrumental Activities of Daily Living Deficits IADL Deficits Identified Deficits Home Safety Awareness Awareness of Need for Assistance at Home Good Awareness Ability to Problem Solve Emergency Able to Problem Solve Situations Medication Management Medication Management No Deficits Identified Money Management Money Management No Deficits Identified Meal Preparation Meal Preparation Caregiver Provides Assist Meal Preparation Comments can assist until pt able Court Monitor Court Monitor Caregiver Provides Assist Court Monitor Comments does cleaning and they have needle felt making machine operator every 2 months Driving Driving Caregiver Provides Assist Driving Comments does most of the driving M6 OT- IP Functional Cognition Start: 11/27/18 17:40 Freq: Status: Active Protocol: Document 11/27/18 15:10 PJM (Rec: 11/27/18 17:52 PJ [email or web address]) Cognitive Factors Limiting Selfcare Function Cognitive Ability Level of Alertness Alert Patient Orientation Name Age Birthday Month Date Year Day of Week Place Situation Attention Span Ability Capable of Focused Attention Capable of Sustained Attention Ability to Follow Commands Able to Follow One Step Commands Memory Description No Deficits Noted Safety Awareness No Deficits Noted Problem Solving Ability No deficits Noted Executive Function Ability No Deficits Noted OT- Vision and Hearing OT- Hearing Assessment OT- Hearing Assessment WFL OT- Vision Assessment Visual Acuity WFL M7 OT- IP Mobility and Balance Start: 11/27/18 17:40 Freq: Status: Active Protocol: Document 11/27/18 15:10 PJM (Rec: 11/27/18 17:52 PJ [email or web address]) OT-Transfer Assessment Comments Mobility Comments did not occur due to hypotension OT- Gait Assessment Comments Gait Ability Comments pt has not yet ambulated with P.T. due to hypotension OT- Balance Assessment Comments Other Balance Tests/Deviations/Treatment to be assessed : M8 OT- IP Objective Assessments Start: 11/27/18 17:40 Freq: Status: Active Protocol: Document 11/27/18 15:10 PJM (Rec: 11/27/18 17:52 PJ [email or web address]) OT Gross Range of Motion Upper Extremity Range of Motion Assessment Within Functional Limits OT Strength Upper Extremity Strength Assessment Within Functional Limits OT- Coordination Assessment Comments Coordination Comments BUE WNL OT-Muscle Tone Assessment Muscle Tone WNL Yes OT Sensation Assessment Comments Summary Comments BUE WNL Edema Edema Absent M9 OT- IP Assessment and Plan Start: 11/27/18 17:40 Freq: Status: Active Protocol: Document 11/27/18 15:10 PJAbby (Rec: 11/27/18 17:52 PJM [id number]) OT Summary Assessment and Plan Potential Rehabilitation Potential Good Analytic Complexity at Evaluation Low Summary OT Impairments Pain Functional Mobility Grooming Dressing Toileting Bathing Toilet Transfers Shower Transfers Progress Towards Goals Slow Progress due to Medical Issues Assessment Summary Low complexity OT assessment completed as limited by hypotension and post op pain today. Pt currently has performance deficits in all functional mobility/transfers, standing grooming, lower body dressing, bathing and toielting. Plan 1-2 additional OT visits to address the goals below. Anticipate pt will d/c home with 24 hr assist from supportive when medically stable and clears P.T. Goals Grooming Goal Independent Dressing Goal Independent Long Handled Shoe Horn Sock Lining Examiner Toileting Goal Independent Bathing Goal Standby Assistance Toilet Transfer Goal Independent Shower Transfer Goal Standby Assistance Patient/Caregiver Education Goal Demonstrate Post-Op Precautions Demonstrate Energy Conservation and Pacing Caregiver Independent Assisting Patient Days to Meet Goals 3 Frequency of Treatment Frequency Of Treatment Once a Day Treatment Plan OT Treatment Plan ADL Training Functional Mobility Patient/Family Education Discharge Planning Discharge Recommendations OT Discharge Recommendations Home with 24/ Assist Home Equipment Needs shower seat
--- NOTE | 2018-11-27 16:04 | PT.IPTN ---
Current Diagnoses Other idiopathic scoliosis, lumbar region (11/26/18) Spinal stenosis, lumbar region without neurogenic claudication (11/26/18) Other specified postprocedural states (11/26/18) Surgery Performed Operation Date: 11/26/18 08:45 Actual Procedures p L3-4,L4-5,L5-S1 TLIF w/Postrior Instru.(Not Applicable) - Bindu Palma MD Physical Therapy Treatment Note M2 PT-IP Current Condition Start: 11/27/18 11:43 Freq: NEEDED Status: Active Protocol: Document 11/27/18 09:36 AB (Rec: 11/27/18 11:56 AB [id number]) Physical Therapy Current Condition Current Condition Evaluation Date 11/27/18 Treatment Diagnosis s/p L3-S1 fusion/lami; difficulty in walking Onset Date 11/26/18 Precautions Lumbar Precautions Log Roll No Twisting Limit Bending Lifting Restriction of 10 lbs Gait Belt above Incisional Area Other Precautions BP; h/o vasovagal episode M3 PT-IP Subjective Start: 11/27/18 11:43 Freq: NEEDED Status: Active Protocol: Document 11/27/18 15:54 SA (Rec: 11/27/18 16:04 SA [id number]) Subjective Physical Therapy Visit Type Type Treatment Note Visit Start Time 15:20 Visit Stop Time 15:51 Total Visit Minutes 31 Number of INDUSTRIAL RELATIONS DIRECTOR Visits 1 Physical Therapy Visit Comments Patient Comments Pt at rest in bed and feels her back pain is under control . Agreeable to PT. Patient Goals To get back home with . Therapy Pain Assessment Pain When Pain Assessed During Mobility Pain Present Pain Present Pain Reported Location Back Intensity 2 Scale Used Numeric (1 - 10) Pain Management Techniques Re-positioning Timing of Activity with Medications M4 PT-IP Mobility and Gait Start: 11/27/18 11:43 Freq: NEEDED Status: Active Protocol: Document 11/27/18 15:54 SA (Rec: 11/27/18 16:04 SA [id number]) PT-Bed Mobility Assessment Rolling Type of Rolling Log Rolling Roll to Right Level of Assist Contact Guard Assistance Supine to Sit Supine to Sit Minimal Assistance 1 Person Assistance Sit to Supine Sit to Supine Minimal Assistance 1 Person Assistance Scooting Scooting to Edge of Bed Contact Guard Assistance Scooting Up and Down in Bed Contact Guard Assistance PT-Transfer Assessment Sit to and From Stand Sit to and from Stand Minimal Assistance 1 Person Assistance Use of Upper Extremities Equipment Transfer Assistive Device Gait Belt Front Wheeled Walker Orthotic/Prosthetic Devices or Brace: No Transfers Transfer Destination Bed Transfer Technique Stand Step Pivot Transfer Ability Level of Assist Contact Guard Assistance Comments Mobility Comments BP prior to session 125/60. Education for log roll technique and pt able to execute with min A for Sup<> Sit. BP at EOB 122/55. Sit to stand from EOB with CGA. Pt moves very slow and segmentally, very gaurded. No increase in pain levels with activity though. Gait Assessment Gait Gait Assistance Required: Minimum Assistance Distance (Feet) 4 Able to Maintain Weight Bearing Status Yes During Gait Assistive Devices Assistive Device Gait Belt Front Wheeled Walker Orthotic/Prosthetic Devices or Brace: No Gait Deviations General Gait Pattern Decreased Stride Length Factors Limiting Gait Function Factors Limiting Gait Function Decreased Activity Tolerance Decreased Sensation Decreased Strength Comments Gait Comments Pt walked 4 feet before becoming dizzy, sat at bottom EOB. BP checked at 95/50 after short stand and walk. M5 PT-IP Objective Assessments Start: 11/27/18 11:43 Freq: NEEDED Status: Active Protocol: Document 11/27/18 09:36 AB (Rec: 11/27/18 12:00 AB [id number]) Orientation Orientation/Cognition Level of Alertness Alert Orientation Name Age Birthday Month Date Year Day of Week Place Situation Safety Awareness Understands Safety Issues Memory Description No Deficits Noted Gross Range of Motion Lower Extremity ROM Assessment Within Functional Limits Strength Lower Extremity Strength Assessment Left Impaired Knee 3+/5 Coordination Assessment Gross Coordination Gross Coordination WNL Sensation Assessment Sensation Gross Sensation WNL Muscle Tone Muscle Tone WNL Yes M6 PT-IP Treatment Start: 11/27/18 11:43 Freq: NEEDED Status: Active Protocol: Document 11/27/18 15:54 SA (Rec: 11/27/18 16:04 [id number]) Physical Therapy Treatment Exercises Exercises Ankle Pumps Gluteal Sets Education Education Provided Precautions Weight Bearing Status Post-Op Packet Safety M7 PT-IP Assessment and Plan Start: 11/27/18 11:43 Freq: NEEDED Status: Active Protocol: Document 11/27/18 15:54 SA (Rec: 11/27/18 16:04 SA [id number]) PT Summary Assessment and Plan Potential Rehabilitation Potential Fair Status of Condition at Evaluation Evolving Summary Impairments Pain ROM Strength Balance Coordination Sensation Tone Cognition Bed Mobility Transfers Gait Activity Tolerance Assessment Summary Pt able to stand and ambualte short distance this afternoon but BP did drop with activity. Pain levels low and not affected by activity. Pt understands spinal precautions . present for treatment and helpful to patient. Frequency of Treatment Frequency Of Treatment Twice a Day Treatment Plan Physical Therapy Treatment Plan Bed Mobility Training Transfer Training Gait Training Therapeutic Exercise Balance Retraining Post Op Education Discharge Planning Hot or Cold Pack Neuromuscular Re-ed Coordination Retraining Manual Therapy Recommendations To Nursing Amount of Assist Needed 2 Person Assist Discharge Recommendations PT Discharge Recommendations Home with 29/04 Assist SNF Rehab
[2018-11-27] MEDS: hydrOXYzine pamoate 25 MG CAPSULE PO (23:50)
[2018-11-28] VITALS: BP 138/60; PULSE 87; RESP 18; TEMP 36.6; O2SAT 98
[2018-11-28] MEDS: OXYCODONE IR 5 MG TABLET 10 MG PO ×3 (02:24→11:50)
[2018-11-28 04:00] VITALS: BP 108/49; PULSE 75; RESP 18; TEMP 36.9; O2SAT 93
[2018-11-28] MEDS: DEXAMETHASONE 4 MG TABLET PO ×2 (05:50→13:51)
[2018-11-28] MEDS: LEVOTHYROXINE 75 MCG TABLET PO (05:50)
[2018-11-28 08:00] VITALS: BP 109/38; PULSE 90; RESP 18; TEMP 36.6; O2SAT 98
[2018-11-28] MEDS: LACTATED RINGERS 1,000 ML 100 ML IV ×2 (09:06→19:37)
--- NOTE | 2018-11-28 09:39 | P.PN_ITS ---
Subjective Date Patient Seen: 11/28/18 Interval history: Patient seen bedside s/p L3-4,L4-5,L5-S1 TLIF POD #2. Patient states that her pain has improved and that she feels less dizzy. She had orthostatic hypotension with PT yesterday but her BP stabilized after a fluid bolus. She denies N/V, CP, SOB, numbness/tingling. She has not really had a full session with PT yet, but I was able to get her sitting on the side of the bed with her feet dangling with the assistance of the nurse. She tolerated this position well. Exam Vital Signs (past 8 hours): - 11/28/18 04:00 11/28/18 08:00 Temperature 98.4 F 97.9 F Pulse Rate 75 90 Respiratory Rate 18 18 Blood Pressure 108/49 L 109/38 L Pulse Oximetry 93 98 Oxygen Delivery Method Room Air Oxygen Flow Rate 0 Narrative Exam Narrative: WDWN NAD A&Ox3. Dressing on lumbar spine is CDI, no signs of drainage. Minimal erythema around the surgical site. Calves are soft and comp ressible with full ROM of the lower extremities. No focal deficits noted. Objective Labs Result Diagrams: 11/27/18 05:12 Assessment & Plan Post-op Postoperative Procedures Operation Date: 11/26/18 08:45 Actual Procedures Side Surgeon p L3-4,L4-5,L5-S1 TLIF w/Postrior Instru. Not Applicable Bindu Palma MD 1. s/p above procedure POD #2- BP has stabilized, continue working with PT and pain control. 2. Post-operative anemia due to acute blood loss-stable. Repeat labs in AM. Dispo-in the next day or two if medically stable and moving well with PT. Quality VTE Deep Vein Thrombosis/Pulmonary Embolism Present on Admission: No
--- NOTE | 2018-11-28 09:45 | OT.IP.TRT ---
Current Diagnoses Other idiopathic scoliosis, lumbar region (11/26/18) Spinal stenosis, lumbar region without neurogenic claudication (11/26/18) Other specified postprocedural states (11/26/18) Surgery Performed Operation Date: 11/26/18 08:45 Actual Procedures p L3-4,L4-5,L5-S1 TLIF w/Postrior Instru.(Not Applicable) - Bindu Palma MD Occupational Therapy Treatment Note M2 OT-IP Current Condition Start: 11/27/18 17:40 Freq: Status: Active Protocol: Document 11/27/18 15:10 PJM (Rec: 11/27/18 17:52 PJM [id number]) Occupational Therapy Current Condition Current Condition Evaluation Date 11/27/18 Treatment Diagnosis decreased slef care, mobility s/p L3-S1 PLIF Post Operative Precautions Lumbar Precautions Log Roll No Twisting Limit Bending Lifting Restriction of 10 lbs Gait Belt above Incisional Area M3 OT- IP Subjective and Pain Start: 11/27/18 17:40 Freq: Status: Active Protocol: Document 11/28/18 09:34 [facility] (Rec: 11/28/18 09:45 [facility] [id number]) OT- Subjective Occupational Therapy Visit Type Type Treatment Note Visit Start Time 09:00 Visit Stop Time 09:30 Total Visit Minutes 30 Occupational Therapy Visit Comments Patient Comments Pt willing to get up after eating breakfast. Patient/Caregiver Goals to go home and be able to complete daily activities with less back pain OT Pain Assessment Pain When Pain Assessed At Rest Pain Present Pain Present Pain Reported Location Back Intensity 3 Scale Used Numeric (1 - 10) Description Aching Acute M4 OT- IP ADL's Start: 11/27/18 17:40 Freq: Status: Active Protocol: Document 11/28/18 09:34 [facility] (Rec: 11/28/18 09:45 [facility] [id number]) OT ADL-Grooming General Evaluation Grooming Ability Standby Assistance Areas Needing Assistance Retrieving/Set-up of Grooming Items Comments OT Grooming Comments Pt able to do own grooming needs while standing with FWW and started to feel a little dizzy and then needing to sit down to the recliner. BP sitting EOB 109/38, 108/52 standing , nursing started fluids with pt , after sitting to recliner after doing grooming 98/56 and after sitting in recliner for a few minutes 121/44. BP numbers swimming pool maintenance supervisor to aid. OT ADL-Oral Care General Eval Oral Care Ability Independent OT ADL-Dressing General Eval Lower Body Dressing Ability Maximum Assistance Comments OT Dressing Comments Pt states will just have assist with dressing as trying to cross her legs over to assist but unable to get legs crossed without discomfort. Encouraged pt to use digital media manager for LB dressing needs. Data Control Clerk Supervisor given to pt. OT ADL-Toileting General Evaluation Toileting Ability Total Assistance Areas Needing Assistance Empty Catheter or Colostomy Comments OT Toileting Comments pt still has thorne in place OT ADL-Bathing Comments OT Bathing Comments Pt looking at ordering shower chair with back and arms today . M5 OT- IP IADL's Start: 11/27/18 17:40 Freq: Status: Active Protocol: Document 11/27/18 15:10 PJM (Rec: 11/27/18 17:52 PJM [id number]) OT-Instrumental Activities of Daily Living Deficits IADL Deficits Identified Deficits Home Safety Awareness Awareness of Need for Assistance at Home Good Awareness Ability to Problem Solve Emergency Able to Problem Solve Situations Medication Management Medication Management No Deficits Identified Money Management Money Management No Deficits Identified Meal Preparation Meal Preparation Caregiver Provides Assist Meal Preparation Comments can assist until pt able Orthodontic Band Maker Orthodontic Band Maker Caregiver Provides Assist Orthodontic Band Maker Comments does cleaning and they have occupational health nurse manager every 2 months Driving Driving Caregiver Provides Assist Driving Comments does most of the driving M6 OT- IP Functional Cognition Start: 11/27/18 17:40 Freq: Status: Active Protocol: Document 11/28/18 09:34 [facility] (Rec: 11/28/18 09:45 [facility] [id number]) Cognitive Factors Limiting Selfcare Function Cognitive Ability Level of Alertness Alert Patient Orientation Name Age Birthday Month Date Year Day of Week Place Situation Attention Span Ability Capable of Focused Attention Capable of Sustained Attention Ability to Follow Commands Able to Follow One Step Commands Memory Description No Deficits Noted Safety Awareness Underestimates Need for Assistance Cognitive Comments Cognitive Assessment Comments Pt needing cues to go and sit as states was getting dizzy while standing. M7 OT- IP Mobility and Balance Start: 11/27/18 17:40 Freq: Status: Active Protocol: Document 11/28/18 09:34 [facility] (Rec: 11/28/18 09:45 [facility] [email or web address]) OT-Transfer Assessment Sit to and From Stand Sit to and from Stand Moderate Assistance 1 Person Assistance Transfers Transfer Ability Contact Guard Assistance Minimal Assistance 1 Person Assistance Technique Transfer Destination Chair Devices Transfer Assistive Devices Gait Belt Front Wheeled Walker Comments Mobility Comments MODA to come to stand and after up on her feet CGA to JESSICA for transfer with FWW. Pt only able to tolerate grooming while up at the sink and then had to sit in recliner. OT- Balance Assessment Sitting Balance and Reactions Static Sitting Balance Ability Normal Dynamic Sitting Balance Ability Normal Standing Balance and Reactions Static Standing Balance Ability Good M8 OT- IP Objective Assessments Start: 11/27/18 17:40 Freq: Status: Active Protocol: Document 11/27/18 15:10 PJM (Rec: 11/27/18 17:52 PJM [id number]) OT Gross Range of Motion Upper Extremity Range of Motion Assessment Within Functional Limits OT Strength Upper Extremity Strength Assessment Within Functional Limits OT- Coordination Assessment Comments Coordination Comments BUE WNL OT-Muscle Tone Assessment Muscle Tone WNL Yes OT Sensation Assessment Comments Summary Comments BUE WNL Edema Edema Absent M9 OT- IP Assessment and Plan Start: 11/27/18 17:40 Freq: Status: Active Protocol: Document 11/28/18 09:34 [facility] (Rec: 11/28/18 09:45 [facility] [email or web address]) OT Summary Assessment and Plan Potential Rehabilitation Potential Good Analytic Complexity at Evaluation Low Summary OT Impairments Pain Functional Mobility Grooming Dressing Toileting Bathing Toilet Transfers Shower Transfers Progress Towards Goals Slow Progress due to Medical Issues Assessment Summary Pt main barriers are steps, activity tolerance, and needing one person assist for all Adl needs at this time. Pending family training with , pt may needs short skilled rehab vs 29/04 assist from . Goals Grooming Goal Independent Dressing Goal Independent Long Handled [place] Data Control Clerk Supervisor Toileting Goal Independent Bathing Goal Standby Assistance Toilet Transfer Goal Independent Shower Transfer Goal Standby Assistance Patient/Caregiver Education Goal Demonstrate Post-Op Precautions Demonstrate Energy Conservation and Pacing Caregiver Independent Assisting Patient Days to Meet Goals 3 Frequency of Treatment Frequency Of Treatment Once a Day Treatment Plan OT Treatment Plan ADL Training Functional Mobility Patient/Family Education Discharge Planning Other Treatment Recommendations and Next Shower and practice with LB Treatment Focus AED Discharge Recommendations OT Discharge Recommendations Home with 24/7 Assist Other Discharge Recommendations SNF pending caregiver training and progress. Home Equipment Needs shower seat
--- NOTE | 2018-11-28 10:35 | PT.IPTN ---
Current Diagnoses Other idiopathic scoliosis, lumbar region (11/26/18) Spinal stenosis, lumbar region without neurogenic claudication (11/26/18) Other specified postprocedural states (11/26/18) Surgery Performed Operation Date: 11/26/18 08:45 Actual Procedures p L3-4,L4-5,L5-S1 TLIF w/Postrior Instru.(Not Applicable) - Bindu Palma MD Physical Therapy Treatment Note M2 PT-IP Current Condition Start: 11/27/18 11:43 Freq: NEEDED Status: Active Protocol: Document 11/27/18 09:36 AB (Rec: 11/27/18 11:56 AB [id number]) Physical Therapy Current Condition Current Condition Evaluation Date 11/27/18 Treatment Diagnosis s/p L3-S1 fusion/lami; difficulty in walking Onset Date 11/26/18 Precautions Lumbar Precautions Log Roll No Twisting Limit Bending Lifting Restriction of 10 lbs Gait Belt above Incisional Area Other Precautions BP; h/o vasovagal episode M3 PT-IP Subjective Start: 11/27/18 11:43 Freq: NEEDED Status: Active Protocol: Document 11/28/18 10:35 GGD (Rec: 11/28/18 12:32 GGD [id number]) Subjective Physical Therapy Visit Type Type Treatment Note Visit Start Time 10:10 Visit Stop Time 10:35 Total Visit Minutes 25 Number of CASTING PLUG ASSEMBLER Visits 2 Physical Therapy Visit Comments Patient Comments Pt states she having pain. Therapy Pain Assessment Pain When Pain Assessed During Mobility Pain Present Pain Present Pain Reported Location Back Intensity 5 Scale Used Numeric (1 - 10) M4 PT-IP Mobility and Gait Start: 11/27/18 11:43 Freq: NEEDED Status: Active Protocol: Document 11/28/18 10:35 GGD (Rec: 11/28/18 12:32 GGD [id number]) PT-Transfer Assessment Sit to and From Stand Sit to and from Stand Moderate Assistance 1 Person Assistance Use of Upper Extremities Equipment Transfer Assistive Device Gait Belt Front Wheeled Walker Orthotic/Prosthetic Devices or Brace: No Transfers Transfer Destination Bed Transfer Technique Stand Step Pivot Transfer Ability Level of Assist Contact Guard Assistance Comments Mobility Comments BP in [id number], standing 108/44, sitting 122/76 PT C/O dizziness with standing. M5 PT-IP Objective Assessments Start: 11/27/18 11:43 Freq: NEEDED Status: Active Protocol: Document 11/27/18 09:36 AB (Rec: 11/27/18 12:00 AB [id number]) Orientation Orientation/Cognition Level of Alertness Alert Orientation Name Age Birthday Month Date Year Day of Week Place Situation Safety Awareness Understands Safety Issues Memory Description No Deficits Noted Gross Range of Motion Lower Extremity ROM Assessment Within Functional Limits Strength Lower Extremity Strength Assessment Left Impaired Knee 3+/5 Coordination Assessment Gross Coordination Gross Coordination WNL Sensation Assessment Sensation Gross Sensation WNL Muscle Tone Muscle Tone WNL Yes M6 PT-IP Treatment Start: 11/27/18 11:43 Freq: NEEDED Status: Active Protocol: Document 11/28/18 10:35 GGD (Rec: 11/28/18 12:32 GGD [id number]) Physical Therapy Treatment Education Education Provided Precautions Safety M7 PT-IP Assessment and Plan Start: 11/27/18 11:43 Freq: NEEDED Status: Active Protocol: Document 11/28/18 10:35 GGD (Rec: 11/28/18 12:32 GGD [id number]) PT Summary Assessment and Plan Summary Assessment Summary Pt unable to ambulate due to increase in dizziness with standing. She needed mod A for sit to stand from chair and max cues. She would benefit from SNF rehab to improve functional mobility. Frequency of Treatment Frequency Of Treatment Twice a Day Treatment Plan Physical Therapy Treatment Plan Bed Mobility Training Transfer Training Gait Training Therapeutic Exercise Balance Retraining Post Op Education Discharge Planning Hot or Cold Pack Neuromuscular Re-ed Coordination Retraining Manual Therapy Recommendations To Nursing Amount of Assist Needed 2 Person Assist Discharge Recommendations PT Discharge Recommendations Home with 24/7 Assist SNF Rehab Other Discharge Recommendations depending on progress: home with 24/7 assist vs SNF
--- NOTE | 2018-11-28 10:57 | CM.DPC ---
Addendum entered by Syl Abrams LPN 11/28/18 12:15: Anh/[facility] has confirmed acceptance of pt for admission when she is stable for same. Went to room to update her. Nursing in process of caring for pt so updated her spouse Jesus, waiting in [place] to visit. He was aware of the snf need and will update his on the [facility] acceptance. [facility] Naomi will check in as planned with pt later this afternoon. Original Note: Addendum entered by Syl Abrams LPN 11/28/18 11:06: SNF choice #2: [facility] if [facility] does not accept. Original Note: DCP: continued: Case received and met with pt in followup to her d/c plan after discussing case in Team [employer]. Introduced self and role. PT is now recommending as snf stay as pt is making much slower progress than anticipated and pt readily confirms this. She states she had no idea the surgery would be so painful and she would like to be able to at least get around in her room and to the bathroom without extreme pain before she considers going to her home. Right now it takes alot to even stand and I am in terrible pain when I do that. Medicare snf list: given. Decision: [facility] Referral: efx and phone call to Anh: is in review with acceptance anticipated. Requested that Naomi do an onsite visit to discuss the specifics of a snf stay at [facility] as pt has never been a pt in a snf setting before. P: [facility], pending acceptance: 11/29 or > Need: PASRR Will follow and update pt as soon as [facility] gives final acceptance.
[2018-11-28 11:09] LABS: BUN Creatinine Ratio 23.3 (6-22); Blood Urea Nitrogen 14 mg/dL (7-17); Calcium 8.3 mg/dL (8.4-10.2); Carbon Dioxide 27 mmol/L (22-32); Chloride 102 mmol/L (98-107); Estimated Glomerular Filt Rate > 60.0 mL/min (>60); Glucose 118 mg/dL (80-110); HEMOLYSIS < 15 (0-50); Potassium 3.7 mmol/L (3.4-5.1); Sodium 136 mmol/L (137-145)
[2018-11-28 11:43] VITALS: BP 147/63; PULSE 76; RESP 18; TEMP 36.3; O2SAT 97
[2018-11-28] MEDS: ACETAMINOPHEN 325 MG TABLET 650 MG PO (11:51)
[2018-11-28] MEDS: ESCITALOPRAM 10 MG TABLET PO (11:51)
[2018-11-28] MEDS: DOCUSATE 100 MG CAPSULE PO ×2 (11:52→21:52)
--- NOTE | 2018-11-28 14:30 | PT.IPTN ---
Current Diagnoses Other idiopathic scoliosis, lumbar region (11/26/18) Spinal stenosis, lumbar region without neurogenic claudication (11/26/18) Other specified postprocedural states (11/26/18) Surgery Performed Operation Date: 11/26/18 08:45 Actual Procedures p L3-4,L4-5,L5-S1 TLIF w/Postrior Instru.(Not Applicable) - Bindu Palma MD Physical Therapy Treatment Note M2 PT-IP Current Condition Start: 11/27/18 11:43 Freq: NEEDED Status: Active Protocol: Document 11/27/18 09:36 AB (Rec: 11/27/18 11:56 AB [id number]) Physical Therapy Current Condition Current Condition Evaluation Date 11/27/18 Treatment Diagnosis s/p L3-S1 fusion/lami; difficulty in walking Onset Date 11/26/18 Precautions Lumbar Precautions Log Roll No Twisting Limit Bending Lifting Restriction of 10 lbs Gait Belt above Incisional Area Other Precautions BP; h/o vasovagal episode M3 PT-IP Subjective Start: 11/27/18 11:43 Freq: NEEDED Status: Active Protocol: Document 11/28/18 14:30 GGD (Rec: 11/28/18 15:29 GGD [id number]) Subjective Physical Therapy Visit Type Type Treatment Note Visit Start Time 14:00 Visit Stop Time 14:30 Total Visit Minutes 30 Number of PUMPING STATION SUPERVISOR Visits 3 Physical Therapy Visit Comments Patient Comments Pt states she may need to use the bathroom. Therapy Pain Assessment Pain When Pain Assessed During Mobility Pain Present Pain Present Pain Reported Location Back Intensity 4 Scale Used Numeric (1 - 10) M4 PT-IP Mobility and Gait Start: 11/27/18 11:43 Freq: NEEDED Status: Active Protocol: Document 11/28/18 14:30 GGD (Rec: 11/28/18 15:29 GGD [id number]) PT-Bed Mobility Assessment Rolling Type of Rolling Log Rolling Level of Assist Contact Guard Assistance Supine to Sit Supine to Sit Minimal Assistance 1 Person Assistance Bedrails Sit to Supine Sit to Supine Minimal Assistance 1 Person Assistance Bedrails Scooting Scooting to Edge of Bed Contact Guard Assistance PT-Transfer Assessment Sit to and From Stand Sit to and from Stand Moderate Assistance 1 Person Assistance Use of Upper Extremities Equipment Transfer Assistive Device Gait Belt Front Wheeled Walker Orthotic/Prosthetic Devices or Brace: No Transfers Transfer Destination Bed Transfer Ability Level of Assist Contact Guard Assistance Comments Mobility Comments BP supine 111/51, sitting 117/ 51, standing 95/20, supine 100 /54, 6 min in supine 128/43 M5 PT-IP Objective Assessments Start: 11/27/18 11:43 Freq: NEEDED Status: Active Protocol: Document 11/27/18 09:36 AB (Rec: 11/27/18 12:00 AB [id number]) Orientation Orientation/Cognition Level of Alertness Alert Orientation Name Age Birthday Month Date Year Day of Week Place Situation Safety Awareness Understands Safety Issues Memory Description No Deficits Noted Gross Range of Motion Lower Extremity ROM Assessment Within Functional Limits Strength Lower Extremity Strength Assessment Left Impaired Knee 3+/5 Coordination Assessment Gross Coordination Gross Coordination WNL Sensation Assessment Sensation Gross Sensation WNL Muscle Tone Muscle Tone WNL Yes M6 PT-IP Treatment Start: 11/27/18 11:43 Freq: NEEDED Status: Active Protocol: Document 11/28/18 14:30 GGD (Rec: 11/28/18 15:29 GGD [id number]) Physical Therapy Treatment Exercises Exercises Ankle Pumps Gluteal Sets Education Education Provided Precautions Safety M7 PT-IP Assessment and Plan Start: 11/27/18 11:43 Freq: NEEDED Status: Active Protocol: Document 11/28/18 14:30 GGD (Rec: 11/28/18 15:29 GGD [id number]) PT Summary Assessment and Plan Summary Assessment Summary Pt unable to progress mobility due to low BP. She needs min A to mod a for mobility. She would benefit from SNF before returning home. Frequency of Treatment Frequency Of Treatment Twice a Day Treatment Plan Physical Therapy Treatment Plan Bed Mobility Training Transfer Training Gait Training Therapeutic Exercise Balance Retraining Post Op Education Discharge Planning Hot or Cold Pack Neuromuscular Re-ed Coordination Retraining Manual Therapy Recommendations To Nursing Amount of Assist Needed 2 Person Assist Discharge Recommendations PT Discharge Recommendations Home with 24/7 Assist SNF Rehab Other Discharge Recommendations depending on progress: home with 24/7 assist vs SNF
--- NOTE | 2018-11-28 14:40 | PC.NURSE ---
RECURRENT HYPOTENSION: PATIENT'S BP MUCH IMPROVED THIS SHIFT AFTER DELAY OF OXYCODONE. HADN'T HAD OXY SINCE NOC SHIFT APPROX 0600, BP HAD NORMALIZED HIGH AROUND 145/65 JUST BEFORE NOON AFTER TRANSF FROM RECLINER TO RAVI BED. PATIENT REQUESTED TO TRY JUST ONE OXYCODONE AT THAT TIME WHICH WAS GIVEN W/ TYLENOL. PHYSICAL THERAPY CAME IN TO EVAL THIS AFTERNOON AND PATIENT BECAME DIZZY AND HYPOTENSIVE WITH STANDING AND HYPOTENSIVE TO 95/20 HR REMAINS IN 70'S. AFTER LAYING BACK DOWN BP IMPROVED TO 100/54. GISELLE CHIU NOTIFIED IMMEDIATELY AND OXY WAS DC'D AND 500CC LR BOLUS ORDERED WHICH IS INFUSING. BRADLEY WAS DC'D AT NOON.
[2018-11-28] MEDS: LACTATED RINGERS 500 ML 1000 ML IV (14:49)
[2018-11-28 15:29] VITALS: BP 118/46; PULSE 73; RESP 20; TEMP 36.5; O2SAT 96
--- NOTE | 2018-11-28 16:37 | PC.NURSE ---
Addendum entered by Farzaneh Brower R.N. 11/28/18 20:49: pt frustrated and angry at doctor for not managing expectations appropriately. Pain increasing throughout shift, up to a 4 around 1829, administered Tramadol around 1899, pain decreased to 3/10. At 2034 pt crying in 5/10 pain, thinks she wants some oxycodone. After orthostatic hypotensive episodes this AM, pt agreed to try [place]. Administered at 2044 and will monitor VS and pain assessments. BP currently 120/53 Original Note: pt AO, but reports feeling a little angry, yet doesn't offer a reason to why. Appears to be frustration with pain, progress, and having to use bedpan earlier today. Sparks was removed during AM shift. pt voided moderate amount in BSC. Transfer 2PA due to previous hypotensive events. BP prior to and and after transfer were WNL- 118/46. pt reporting mild 3/10 pain in the bone graft location, not wanting pain medications currently. LR running at 100/hr. Dressing CDI , changed during AM shift.
[2018-11-28] MEDS: TRAMADOL 50 MG TABLET PO (18:31)
[2018-11-28 19:06] VITALS: BP 120/53; PULSE 80; RESP 18; TEMP 36.5; O2SAT 94
[2018-11-28] MEDS: HYDROCODONE/ACET 5/325 TABLET 1 TAB PO (20:46)
[2018-11-28] MEDS: SENNOSIDES 8.6 MG TABLET 17.2 MG PO (21:52)
[2018-11-29] VITALS (15 sets, daily range): BP systolic 113–140; BP diastolic 45–62; PULSE 66–77; RESP 16–20; TEMP 36.4–37.4; O2SAT 93–95
[2018-11-29] MEDS: HYDROCODONE/ACET 5/325 TABLET 1 TAB PO ×5 (02:27→21:16)
[2018-11-29 05:25] LABS: Hemoglobin 7.9 g/dL (12.0-16.0)
[2018-11-29 05:35] LABS: Hematocrit 23.6 % (36-46)
[2018-11-29] MEDS: LACTATED RINGERS 1,000 ML 100 ML IV (05:37)
[2018-11-29] MEDS: LEVOTHYROXINE 75 MCG TABLET PO (05:39)
--- NOTE | 2018-11-29 09:02 | P.PN_ITS ---
Subjective Date Patient Seen: 11/29/18 Time Patient Seen: 08:57 Interval history: POD #3 status post TLIF with Dr. Palma. Patient has been having orthostatic hypotension for the past 3 days following surgery. Her H&H has been low with most recently being 7.9/23.6. She is agreeable to get 2 units of packed red blood cells today. She states she feels tired and dizzy this morning. She has been very slow to mobilize with physical therapy. She has not mobilized in the [place] yet. She had her Sparks removed in his urinating well on her own. Exam Vital Signs (past 8 hours): - 11/29/18 02:24 11/29/18 06:00 11/29/18 07:45 Temperature 98.6 F 98.3 F Pulse Rate 76 71 75 Respiratory Rate 19 18 16 Blood Pressure 118/59 L 113/46 L 131/62 Pulse Oximetry 94 93 95 Oxygen Delivery Method Room Air Oxygen Flow Rate 0 Narrative Exam Narrative: Patient lying in bed in no acute distress. She is alert and oriented x3. She is very pale. Calves are soft, compressible, nontender bilaterally. Sensation intact light touch throughout bilateral lower extremities. She is able to actively dorsiflex and plantar flex. Pulses are symmetrical. Objective Labs Result Diagrams: 11/29/18 05:05 11/28/18 10:10 Labs: Laboratory Results - last 24 hr 11/28/18 11/29/18 10:10 05:05 Hgb 7.9 L Hct 23.6 L Sodium 136 L Potassium 3.7 Chloride 102 Carbon Dioxide 27 BUN 14 Creatinine 0.60 Estimated GFR > 60.0 BUN/Creatinine Ratio 23.3 H Glucose 118 H Calcium 8.3 L Assessment & Plan Post-op (1) S/P lumbar fusion: Current Visit: Yes Status: Acute (2) Postoperative anemia due to acute blood loss: Current Visit: Yes Status: Acute Postoperative Procedures Operation Date: 11/26/18 08:45 Actual Procedures Side Surgeon p L3-4,L4-5,L5-S1 TLIF w/Postrior Instru. Not Applicable Bindu Palma MD Patient will get 2 units of PRBCs today. Will type and screen prior. Get a CBC 1 hour after transfusion. Continue current pain control. She will continue to mobilize with physical therapy. Patient will likely be able to go to longterm facility this afternoon if she has received her transfusion prior. She has been very slow to mobilize and would benefit from rehabilitation after surgery. Plan to discharge either today or tomorrow to [facility]. Quality VTE Deep Vein Thrombosis/Pulmonary Embolism Present on Admission: No
--- NOTE | 2018-11-29 09:16 | CM.DPC ---
Addendum entered by Syl Abrams LPN 11/29/18 14:26: Plan at this point if [facility] tomorrow. Naomi is setting up tentative transport by w/c [facility] (not the facility vehicle). This is now set for 1300 tomorrow. Plan: check in tomorrow morning to make sure pt is stable for the d/c and proceed accordingly. PASRR is now completed and faxed in prep for the d/c. Original Note: DCP: continued: spoke this morning with ortho PA Nereyda. She stated her intention to order 2units of blood for pt and will plan then for d/c to [facility]. she was uncertain if this could be completed today. Conferred with RN coordinator Aliya who reviewed case, noted that type and cross would need to be done before the blood could be given and this process is expected to take several hours. Nereyda is updated, states will work on the d/c orders for snf but with plan likely for d/c tomorrow morning to [facility]. Pt and her as well as RN Juliana are updated. Spoke with Naomi/[facility]. She is agreeable to plan: will hold bed until pt is ready for d/c with tentative plan to have her picked up by [facility] [email or web address] tomorrow morning. Will follow... Will complete PASRR and fax to [facility] in prep for the d/c. BERT: as per weekend protocol: BERT # 2 is presented verbally to pt during the above conversation. She remains aware of the BERT and agreeable to plan for [facility] when stable for same. She was in porcess of having BP taken so gave verbal consent instead of 2nd signature.
--- NOTE | 2018-11-29 09:30 | PT.IPTN ---
Current Diagnoses Acute posthemorrhagic anemia (11/26/18) Other idiopathic scoliosis, lumbar region (11/26/18) Spinal stenosis, lumbar region without neurogenic claudication (11/26/18) Arthrodesis status (11/26/18) Other specified postprocedural states (11/26/18) Surgery Performed Operation Date: 11/26/18 08:45 Actual Procedures p L3-4,L4-5,L5-S1 TLIF w/Postrior Instru.(Not Applicable) - Bindu Palma MD Physical Therapy Treatment Note M2 PT-IP Current Condition Start: 11/27/18 11:43 Freq: NEEDED Status: Active Protocol: Document 11/27/18 09:36 AB (Rec: 11/27/18 11:56 AB [id number]) Physical Therapy Current Condition Current Condition Evaluation Date 11/27/18 Treatment Diagnosis s/p L3-S1 fusion/lami; difficulty in walking Onset Date 11/26/18 Precautions Lumbar Precautions Log Roll No Twisting Limit Bending Lifting Restriction of 10 lbs Gait Belt above Incisional Area Other Precautions BP; h/o vasovagal episode M3 PT-IP Subjective Start: 11/27/18 11:43 Freq: NEEDED Status: Active Protocol: Document 11/29/18 09:30 GGD (Rec: 11/29/18 12:19 GGD [id number]) Subjective Physical Therapy Visit Type Type Treatment Note Visit Start Time 09:00 Visit Stop Time 09:30 Total Visit Minutes 30 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 Therapy Pain Assessment Pain When Pain Assessed During Mobility Pain Present Pain Present Pain Reported Location Back Intensity 5 M4 PT-IP Mobility and Gait Start: 11/27/18 11:43 Freq: NEEDED Status: Active Protocol: Document 11/29/18 09:30 GGD (Rec: 11/29/18 12:19 GGD [id number]) PT-Bed Mobility Assessment Rolling Type of Rolling Log Rolling Roll to Right Level of Assist Contact Guard Assistance Supine to Sit Supine to Sit Minimal Assistance 1 Person Assistance Bedrails Sit to Supine Sit to Supine Moderate Assistance 1 Person Assistance Bedrails Scooting Scooting to Edge of Bed Contact Guard Assistance PT-Transfer Assessment Sit to and From Stand Sit to and from Stand Minimal Assistance 1 Person Assistance Use of Upper Extremities Equipment Transfer Assistive Device Gait Belt Front Wheeled Walker Orthotic/Prosthetic Devices or Brace: No Transfers Transfer Destination Bed Bedside Commode Transfer Ability Level of Assist Contact Guard Assistance Comments Mobility Comments BP supine 120/47, sitting 113/ 42, standing 84/44, supine 88/ 52, 2 min in supine 113/42 M5 PT-IP Objective Assessments Start: 11/27/18 11:43 Freq: NEEDED Status: Active Protocol: Document 11/27/18 09:36 AB (Rec: 11/27/18 12:00 AB [id number]) Orientation Orientation/Cognition Level of Alertness Alert Orientation Name Age Birthday Month Date Year Day of Week Place Situation Safety Awareness Understands Safety Issues Memory Description No Deficits Noted Gross Range of Motion Lower Extremity ROM Assessment Within Functional Limits Strength Lower Extremity Strength Assessment Left Impaired Knee 3+/5 Coordination Assessment Gross Coordination Gross Coordination WNL Sensation Assessment Sensation Gross Sensation WNL Muscle Tone Muscle Tone WNL Yes M6 PT-IP Treatment Start: 11/27/18 11:43 Freq: NEEDED Status: Active Protocol: Document 11/28/18 14:30 GGD (Rec: 11/28/18 15:29 GGD [id number]) Physical Therapy Treatment Exercises Exercises Ankle Pumps Gluteal Sets Education Education Provided Precautions Safety M7 PT-IP Assessment and Plan Start: 11/27/18 11:43 Freq: NEEDED Status: Active Protocol: Document 11/29/18 09:30 GGD (Rec: 11/29/18 12:19 GGD [id number]) PT Summary Assessment and Plan Summary Assessment Summary Pt had decrease BP with mobility. She was asymptomatic with return to supine position . She is still needs min to Mod a with bed mobility and sit to transfers. Frequency of Treatment Frequency Of Treatment Twice a Day Recommendations To Nursing Amount of Assist Needed 2 Person Assist Discharge Recommendations PT Discharge Recommendations Home with 24/7 Assist SNF Rehab Other Discharge Recommendations depending on progress: home with 24/7 assist vs SNF
[2018-11-29] MEDS: ESCITALOPRAM 10 MG TABLET PO (09:54)
[2018-11-29] MEDS: ASCORBIC ACID 500 MG TABLET PO ×3 (09:54→21:16)
[2018-11-29] MEDS: DOCUSATE 100 MG CAPSULE PO (09:54)
[2018-11-29] MEDS: FERROUS SULFATE 325 MG TABLET PO ×2 (09:54→16:49)
[2018-11-29] MEDS: buPROPion XL 150 MG TAB PO (09:54)
--- NOTE | 2018-11-29 13:02 | PC.NURSE ---
pre blood vitals documented and saved.
--- NOTE | 2018-11-29 14:36 | PT.IPTN ---
Current Diagnoses Acute posthemorrhagic anemia (11/26/18) Other idiopathic scoliosis, lumbar region (11/26/18) Spinal stenosis, lumbar region without neurogenic claudication (11/26/18) Arthrodesis status (11/26/18) Other specified postprocedural states (11/26/18) Surgery Performed Operation Date: 11/26/18 08:45 Actual Procedures p L3-4,L4-5,L5-S1 TLIF w/Postrior Instru.(Not Applicable) - Bindu Palma MD Physical Therapy Treatment Note M2 PT-IP Current Condition Start: 11/27/18 11:43 Freq: NEEDED Status: Active Protocol: Document 11/27/18 09:36 AB (Rec: 11/27/18 11:56 AB [id number]) Physical Therapy Current Condition Current Condition Evaluation Date 11/27/18 Treatment Diagnosis s/p L3-S1 fusion/lami; difficulty in walking Onset Date 11/26/18 Precautions Lumbar Precautions Log Roll No Twisting Limit Bending Lifting Restriction of 10 lbs Gait Belt above Incisional Area Other Precautions BP; h/o vasovagal episode M3 PT-IP Subjective Start: 11/27/18 11:43 Freq: NEEDED Status: Active Protocol: Document 11/29/18 14:36 GGD (Rec: 11/29/18 14:36 GGD [id number]) Subjective Physical Therapy Visit Type Notes Hold per RN, pt getting blood. Will see in AM. Amount of Assist Needed 2 Person Assist Discharge Recommendations PT Discharge Recommendations Home with 24/7 Assist SNF Rehab Other Discharge Recommendations depending on progress: home with 24/7 assist vs SNF
--- NOTE | 2018-11-29 14:40 | OT.IP.TRT ---
Current Diagnoses Acute posthemorrhagic anemia (11/26/18) Other idiopathic scoliosis, lumbar region (11/26/18) Spinal stenosis, lumbar region without neurogenic claudication (11/26/18) Arthrodesis status (11/26/18) Other specified postprocedural states (11/26/18) Surgery Performed Operation Date: 11/26/18 08:45 Actual Procedures p L3-4,L4-5,L5-S1 TLIF w/Postrior Instru.(Not Applicable) - Bindu Palma MD Occupational Therapy Treatment Note M2 OT-IP Current Condition Start: 11/27/18 17:40 Freq: Status: Active Protocol: Document 11/27/18 15:10 PJM (Rec: 11/27/18 17:52 PJM [id number]) Occupational Therapy Current Condition Current Condition Evaluation Date 11/27/18 Treatment Diagnosis decreased slef care, mobility s/p L3-S1 PLIF Post Operative Precautions Lumbar Precautions Log Roll No Twisting Limit Bending Lifting Restriction of 10 lbs Gait Belt above Incisional Area M3 OT- IP Subjective and Pain Start: 11/27/18 17:40 Freq: Status: Active Protocol: Document 11/29/18 14:37 CCC (Rec: 11/29/18 14:40 CCC [id number]) OT- Subjective Occupational Therapy Visit Type Type Treatment Note Visit Start Time 14:27 Visit Stop Time 14:35 Total Visit Minutes 8 Notes Pt not wanting to get up at this time and would rather have nursing get her up later to use the BSC. Pt had multiple questions to what to expect from skill[facility] rehab and able to answer questions. Pt having 2 units of blood today and looking to go to skilled rehab tomorrow.
[2018-11-29] MEDS: hydrOXYzine pamoate 25 MG CAPSULE PO (21:54)
--- NOTE | 2018-11-29 22:40 | PC.NURSE ---
2nd PRBC started @ 1745 and completed @ 2029 without issues or complications. RFA LR @ 100 started upon completion of blood. 95%RA, lS clear, denies SOB. BT+, denies nausea, BRP and BSC to void and BM. Left lower leg with 1+ edema. changed lower back drsg to coversite drsg, incision well approximated with sommer and CDI, slight bruising to area, no s/ss infection, afebrile, 97.8. Pt high needs this shift. BRP, BSC, water, ice pack... wanting to know why she is in pain from surgery as well as, pain from marrow aspiration. By end of shift reports ready to go to [facility] for rehab. in to visit. Bed alarm on for safety.
--- NOTE | 2018-11-29 23:48 | PC.NURSE ---
Assumed care of pt at 2300 on 11/29/18. Pt sleeping in bed during bedside hand-off. Awakens to voice. IVF infusing per orders. Order for CBC post transfusion noted. Lab contacted for draw. 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
[2018-11-29 23:59] LABS: Add Manual Diff / Slide Review NO; Basophils Absolute Auto 100 /uL (0-100); Basophils Percent Auto 0.8 % (0-2); Eosinophils Absolute Auto 100 /uL (0-450); Eosinophils Percent Auto 1.4 % (2-4); Hematocrit 34.8 % (36-46); Hemoglobin 11.7 g/dL (12.0-16.0); Lymphocytes Absolute Auto 1500 /uL (1100-4500); Lymphocytes Percent Auto 17.6 % (25-40); Mean Corpuscular HGB Conc 33.5 % (30-36); Mean Corpuscular Hemoglobin 30.3 PG (26-34); Mean Corpuscular Volume 90.4 fL (80-100); Monocytes Absolute Auto 600 /uL (0-900); Monocytes Percent Auto 7.3 % (3-14); Neutrophils Absolute Auto 6200 /uL (1500-7000); Neutrophils Percent Auto 72.9 % (50-75); Platelet Count 165 X10^3/uL (150-400); Red Blood Cell Count 3.86 X10^6/uL (4.0-5.2); Red Cell Distribution Width 14.9 % (11.6-14.8); White Blood Cell Count 8.5 X10^3/uL (4.5-11.0)
[2018-11-30] MEDS: LACTATED RINGERS 1,000 ML 100 ML IV (00:03)
[2018-11-30] MEDS: HYDROCODONE/ACET 5/325 TABLET 1 TAB PO ×3 (01:35→09:55)
[2018-11-30 04:10] VITALS: BP 117/49; PULSE 70; RESP 16; TEMP 36.7; O2SAT 92
[2018-11-30] MEDS: LEVOTHYROXINE 75 MCG TABLET PO (05:43)
[2018-11-30 05:49] LABS: Hematocrit 31.1 % (36-46); Hemoglobin 10.4 g/dL (12.0-16.0)
[2018-11-30 08:05] VITALS: BP 138/64; PULSE 79; RESP 16; TEMP 36.8; O2SAT 97
[2018-11-30] MEDS: ASCORBIC ACID 500 MG TABLET PO (09:07)
[2018-11-30] MEDS: FERROUS SULFATE 325 MG TABLET PO (09:07)
[2018-11-30] MEDS: ESCITALOPRAM 10 MG TABLET PO (09:08)
[2018-11-30] MEDS: buPROPion XL 150 MG TAB PO (09:08)
[2018-11-30] MEDS: SODIUM CHLORIDE 0.9% FLUSH 10 ML IV (09:55)
[2018-11-30 10:14] VITALS: BP 142/66
--- NOTE | 2018-11-30 10:45 | PM.PNPO.1 ---
Subjective Date Patient Seen: 11/30/18 Time Patient Seen: 10:31 Interval history: Patient postoperative day 4 TLIF. Patient is still having some pain issues but it is tolerated with her oral medication. Patient got 2 units of packed red blood cells yesterday which did cause a good increase in her blood count. Patient is being ready to be transferred to a senior care facility today. Exam Vital Signs (past 8 hours): - 11/30/18 04:10 11/30/18 08:05 11/30/18 10:14 Temperature 98.1 F 98.2 F Pulse Rate 70 79 Respiratory Rate 16 16 Blood Pressure 117/49 L 138/64 Blood Pressure [Orthostatic Sitting] 142/66 H Pulse Oximetry 92 97 Oxygen Delivery Method Room Air Oxygen Flow Rate 0 Narrative Exam Narrative: Patient is alert and ordered x3. No apparent distress. Patient is getting around quite well with physical therapy. Patient has positive dorsiflexion and plantar flexion bilaterally. Palpable pedal pulses. Sensation is intact. Nontender to palpation to the posterior aspect of both calves. Objective Labs Result Diagrams: 11/30/18 05:11 11/28/18 10:10 Labs: Laboratory Results - last 24 hr 11/29/18 11/29/18 11/30/18 09:05 23:49 05:11 WBC 8.5 RBC 3.86 L Hgb 11.7 L 10.4 L Hct 34.8 L 31.1 L MCV 90.4 MCH 30.3 MCHC 33.5 RDW 14.9 H Plt Count 165 Neut % (Auto) 72.9 Lymph % (Auto) 17.6 L [facility] % (Auto) 7.3 Eos % (Auto) 1.4 L Baso % (Auto) 0.8 Neut # (Auto) 6200 Lymph # (Auto) 1500 [facility] # (Auto) 600 Eos # (Auto) 100 Baso # (Auto) 100 Blood Type AB Positive Antibody Screen Negative Crossmatch See Detail Assessment & Plan Post-op Postoperative Procedures Operation Date: 11/26/18 08:45 Actual Procedures Side Surgeon p L3-4,L4-5,L5-S1 TLIF w/Postrior Instru. Not Applicable Bindu Palma MD Postoperative day: 5 Postoperative status: doing well Postoperative status narrative: Patient doing well after surgery to the lumbar spine. Patient is going to be transferred to a senior care facility later today. Postoperative plan: see orders and discharge Time Spent With Patient 15-24 minutes Quality VTE Deep Vein Thrombosis/Pulmonary Embolism Present on Admission: No
--- NOTE | 2018-11-30 11:12 | PT.IPTN ---
Current Diagnoses Acute posthemorrhagic anemia (11/26/18) Other idiopathic scoliosis, lumbar region (11/26/18) Spinal stenosis, lumbar region without neurogenic claudication (11/26/18) Arthrodesis status (11/26/18) Other specified postprocedural states (11/26/18) Surgery Performed Operation Date: 11/26/18 08:45 Actual Procedures p L3-4,L4-5,L5-S1 TLIF w/Postrior Instru.(Not Applicable) - Bindu Palma MD Physical Therapy Treatment Note M2 PT-IP Current Condition Start: 11/27/18 11:43 Freq: NEEDED Status: Active Protocol: Document 11/27/18 09:36 AB (Rec: 11/27/18 11:56 AB [id number]) Physical Therapy Current Condition Current Condition Evaluation Date 11/27/18 Treatment Diagnosis s/p L3-S1 fusion/lami; difficulty in walking Onset Date 11/26/18 Precautions Lumbar Precautions Log Roll No Twisting Limit Bending Lifting Restriction of 10 lbs Gait Belt above Incisional Area Other Precautions BP; h/o vasovagal episode M3 PT-IP Subjective Start: 11/27/18 11:43 Freq: NEEDED Status: Active Protocol: Document 11/30/18 10:50 CLB (Rec: 11/30/18 11:12 CLB [id number]) Subjective Physical Therapy Visit Type Type Patient Refusal Notes Pt refused she had just sat down after ambulating in [place] with and stated she is discharging at 1:00 to [facility]. M4 PT-IP Mobility and Gait Start: 11/27/18 11:43 Freq: NEEDED Status: Active Protocol: Document 11/29/18 09:30 GGD (Rec: 11/29/18 12:19 GGD [id number]) PT-Bed Mobility Assessment Rolling Type of Rolling Log Rolling Roll to Right Level of Assist Contact Guard Assistance Supine to Sit Supine to Sit Minimal Assistance 1 Person Assistance Bedrails Sit to Supine Sit to Supine Moderate Assistance 1 Person Assistance Bedrails Scooting Scooting to Edge of Bed Contact Guard Assistance PT-Transfer Assessment Sit to and From Stand Sit to and from Stand Minimal Assistance 1 Person Assistance Use of Upper Extremities Equipment Transfer Assistive Device Gait Belt Front Wheeled Walker Orthotic/Prosthetic Devices or Brace: No Transfers Transfer Destination Bed Bedside Commode Transfer Ability Level of Assist Contact Guard Assistance Comments Mobility Comments BP supine 120/47, sitting 113/ 42, standing 84/44, supine 88/ 52, 2 min in supine 113/42 M5 PT-IP Objective Assessments Start: 11/27/18 11:43 Freq: NEEDED Status: Active Protocol: Document 11/27/18 09:36 AB (Rec: 11/27/18 12:00 AB [id number]) Orientation Orientation/Cognition Level of Alertness Alert Orientation Name Age Birthday Month Date Year Day of Week Place Situation Safety Awareness Understands Safety Issues Memory Description No Deficits Noted Gross Range of Motion Lower Extremity ROM Assessment Within Functional Limits Strength Lower Extremity Strength Assessment Left Impaired Knee 3+/5 Coordination Assessment Gross Coordination Gross Coordination WNL Sensation Assessment Sensation Gross Sensation WNL Muscle Tone Muscle Tone WNL Yes M6 PT-IP Treatment Start: 11/27/18 11:43 Freq: NEEDED Status: Active Protocol: Document 11/28/18 14:30 GGD (Rec: 11/28/18 15:29 GGD [id number]) Physical Therapy Treatment Exercises Exercises Ankle Pumps Gluteal Sets Education Education Provided Precautions Safety M7 PT-IP Assessment and Plan Start: 11/27/18 11:43 Freq: NEEDED Status: Active Protocol: Document 11/29/18 09:30 GGD (Rec: 11/29/18 12:19 GGD [id number]) PT Summary Assessment and Plan Summary Assessment Summary Pt had decrease BP with mobility. She was asymptomatic with return to supine postion . She is still needs min to Mod a with bed mobility and sit to transfers. Frequency of Treatment Frequency Of Treatment Twice a Day Recommendations To Nursing Amount of Assist Needed 2 Person Assist Discharge Recommendations PT Discharge Recommendations Home with 24/7 Assist SNF Rehab Other Discharge Recommendations depending on progress: home with 24/7 assist vs SNF
--- NOTE | 2018-11-30 11:56 | CM.DPC ---
DCP: continued: Dr. Mayfield was here and ok'd pt for [facility] as planned. Checked in with pt and her and both remain agreeable to the plan. Naomi/[facility] is updated. Final snf orders are faxed. Van will be here at 1300. EVARISTO Suárez and RN coordinator Aliya are updated.
[2018-11-30 12:58] VITALS: BP 127/66; PULSE 78; RESP 16; O2SAT 95
--- NOTE | 2018-11-30 13:11 | PC.NURSE ---
Patient alert & oriented. Reports no pain. D/c IV access. Called and gave report to [facility] staff. Patient left floor at 1332 via wheelchair.
--- NOTE | 2018-12-11 09:38 | P.DS_ITS ---
History of Present Illness Date Patient Seen: 12/11/18 Time Patient Seen: 09:35 Chief complaint: lumbar [id number] Narrative: hospital day 5, postop day 4 following L3-4 through L5-S1 laminectomy, TLIF, cage, posterior screw fixation. Patient has been stable the last 24 hr. She did have postoperative anemia and orthostatic hypotension starting postop day 2. given 2 units of packed RBC postop day 3 with good improvement. Patient progressed slowly with physical therapy. Discharge Providers Date of admission: 11/26/18 07:29 Discharge Date: 11/30/18 Primary care physician: Wilber Morfin MD Consults: 11/26/18 14:52 Consult to Occupational Therapy Evaluate & Treat Comment: Physician Instructions: Evaluate and treat Consult to Physical Therapy Evaluate & Treat Comment: Physician Instructions: Evaluate and Treat Discharge provider: Elmer Arcos PA-C Summary Discharge Diagnosis: Status post L3-4 through L5-S1 laminectomy, TLIF, cage, posterior screw fixation. Hospital Course: Patient brought to hospital on 11/26/2018 for above noted surgery. She developed the orthostatic hypertension and postoperative anemia on postop day 2. given 2 units packed RBC on postop day 3. she had good response with blood. Progress slowly with physical therapy and needing more assist. Patient was discharged to [facility] on postop day 4. Status at Discharge Cognitive/behavioral status at discharge: oriented Functional status at discharge: uses cane/walker Overall status at discharge: patient is progressing back to baseline Time Spent with Patient Less than 30 minutes Exam Vital Signs (past 8 hours): Oxygen Delivery Method Room Air Oxygen Flow Rate 0 Objective Labs Result Diagrams: 11/30/18 05:11 11/28/18 10:10 Discharge Plan Discharge Plan Patient Disposition: SNF Transfer to: [facility] Under care of provider: Facility Transportation: Facility vehicle Consult as needed: Dental, Hearing, Mental health, Podiatry and Vision I certify the postop hospital care home care is medically necessary on a continuing basis for any conditions for which he/ she received care during this hospitalization.: Yes The receiving facility has agreed to accept transfer and provide medical treatment.: Yes Discharge Med Rec/Prescriptions Prescriptions: New acetaminophen 325 mg Tablet 650 mg PO Q6HR PRN (Reason: Pain, Mild (1-3)) Qty: 60 RF: 0 hydrocodone-acetaminophen 5-325 mg Tablet 1 tab PO Q4HR PRN (Reason: Pain, Severe (7-10)) Qty: 50 RF: 0 tramadol 50 mg Tablet 50 mg PO QID PRN (Reason: Pain, Moderate (4-6)) Qty: 60 RF: 0 ascorbic acid (vitamin C) [Vitamin C] 500 mg Tablet 500 mg PO BID Qty: 60 RF: 0 ferrous sulfate 325 mg (65 mg iron) Tablet 325 mg PO BIDWM Qty: 60 RF: 0 docusate sodium 100 mg Capsule 100 mg PO BID Qty: 60 RF: 0 alum-mag hydroxide-simeth [Mag-Al Plus] 200-200-20 mg/5 mL Suspension 30 ml PO QID PRN (Reason: Dyspepsia) Qty: 60 RF: 0 Continued levothyroxine [Synthroid] 125 MCG tablet 0.75 mcg PO QAM Qty: 0 RF: 0 escitalopram oxalate [Lexapro] 5 MG tablet 10 mg PO QDAY Qty: 0 RF: 0 bupropion HCl 150 mg Tablet Extended Release 24 Hr 150 mg PO QAM Qty: 0 RF: 0 alendronate 70 mg Tablet 70 mg PO QWEEK RF: 0 ranitidine HCl 300 mg Capsule 300 mg PO DAILY RF: 0 Discontinued diphenhydramine-acetaminophen [Tylenol PM Extra Strength] 25-500 mg Tablet 500 mg PO BEDTIME RF: 0 Follow up/Referrals: Bindu Palma MD [Physician] - (Follow up in 10-14 days) Wilber Morfin MD [Primary Care Provider] - (Follow up with PCP for post operative anemia) Discharge Health Status Multidrug resistant organism: No MDRO Provider Discharge Instructions Diet: Diet as Tolerated Liquid consistency: Normal/Thin Food texture: Regular Activity: No excessive bending, lifting, or twisting Cold/Heat Therapy: as needed Skin/Wound/Dressing Care Report to your healthcare provider any signs of infection, such as:: chills, fever and increased pain Dressing: Coversite dressing prior to discharge [facility] Rehab type: Physical therapy and Occupational therapy Visit Report/Discharge Packet Instructions: DI for Transforaminal Lumbar Interbody Fusion Discharge Data Primary Care Provider: Wilber Morfin Attending Provider: Bindu Palma Admit Date/Time: 11/26/18 07:29 Discharges patient from system. Discharge Date/Time: 11/30/18 13:10 Quality VTE Deep Vein Thrombosis/Pulmonary Embolism Present on Admission: No
== END 2018-11-30 13:10 | DRG 454 ==
LOC: AC 11:44 → ICU 12:08 → AC 20:25
PROVIDERS: Physician Assistant; Physician Assistant Surgical; Admitting Provider Orthopaedic Surgery Orthopaedic Surgery of the Spine; PCP Internal Medicine; Visit Provider Orthopaedic Surgery Orthopaedic Surgery of the Spine
PROC: 0SG10AJ Fusion of 2 or more Lumbar Vertebral Joints with Interbody Fusion Device, Posterior Approach, Anterior Column, Open Approach (ICD-10-PCS; principal; 2018-11-26 08:45)
DX: M48.061 Spinal stenosis, lumbar region without neurogenic claudication (principal); D62 Acute posthemorrhagic anemia; M41.26 Other idiopathic scoliosis, lumbar region; E03.9 Hypothyroidism, unspecified; E78.5 Hyperlipidemia, unspecified; F32.9 Major depressive disorder, single episode, unspecified; M43.16 Spondylolisthesis, lumbar region; I95.9 Hypotension, unspecified
CPT/HCPCS: 36415; 36430; 72100; 76000; 80048; 85014; 85018; 85025; 86850; 86900; 86901; 97162; 97165; 97530; 97535; C1776; P9016; C9290; J0330; J0690; J1100; J1170; J2250; J2405; J2704; J3010

== ENCOUNTER → 2018-12-10 16:24 | Outpatient (CLI) | payer SELFPAY ==
[2018-11-26 16:02] VITALS: BMI 23.3
--- NOTE | 2018-12-10 | DI.US.S_ITS ---
PROCEDURE: US PERIPH VENOUS LOW EXTREM LT INDICATIONS: LEFT FOOT PAIN, SWELLING TECHNIQUE: Real-time imaging, as well as color and pulse Doppler interrogation, were performed of the lower extremity deep veins from the inguinal ligament to the popliteal fossa. COMPARISON: None. FINDINGS: The deep veins are normally compressible, and free of intraluminal thrombus. Color and pulse Doppler demonstrate normal phasic intraluminal flow. There is normal augmentation response to distal compression maneuver. IMPRESSION: No visualized deep venous thrombosis. Dictated by: Martha Sheikh M.D. on 12/10/2018 at 17:16 Approved by: Martha Sheikh M.D. on 12/10/2018 at 17:16
== END ==
PROVIDERS: Family Provider Internal Medicine; PCP Internal Medicine; Visit Provider Orthopaedic Surgery Orthopaedic Surgery of the Spine
DX: M79.605 Pain in left leg (principal); M79.89 Other specified soft tissue disorders
CPT/HCPCS: 93971

== ENCOUNTER → 2018-12-22 15:43 | Outpatient (CLI) | payer MEDICARE, SELFPAY ==
[2018-11-26 16:02] VITALS: BMI 23.3
--- NOTE | 2018-12-22 | DI.CT.S_ITS ---
PROCEDURE: CT LUMBAR SPINE WO CON INDICATIONS: Radiculopathy, lumbar region TECHNIQUE: Noncontrast 3 mm thick sections acquired from the T12 level to the sacrum. Sagittal and coronal reformats were constructed. For radiation dose reduction, the following was used: automated exposure control. COMPARISON: [facility], CR, XR LUMBAR SPINE 2 OR 3 VIEWS, 12/12/2018, 13:50. [facility], CR, XR LUMBAR SPINE 2 OR 3 VIEWS, 09/19/2018, 14:48. [facility], CR, XR LUMBAR SPINE 2-3V, 11/26/2018, 9:15. FINDINGS: Image quality: Excellent. Bones: There is levoscoliosis. There is otherwise normal bony alignment. No acute vertebral body compression fractures. No suspicious lytic or blastic bony lesions. There are discectomy is end posterior spinal fusion from L3 to S1. Central spinal caliber is of normal overall caliber. No pars defects. T12-L1: Normal appearance L1-L2: Preserved disc height. There is diffuse posterior disc bulge. Mild bilateral facet arthropathy and hypertrophy of ligamentum flavum. The central canal is mildly narrowed. No foraminal stenosis. L2-L3: Preserved disc height. There is diffuse posterior disc bulge. Mild bilateral facet arthropathy and hypertrophy of ligamentum flavum. The central canal is mildly narrowed. No foraminal stenosis. L3-L4: Discectomy, posterior decompression and posterior spinal fusion. There is moderate bilateral facet arthropathy. No central canal stenosis or foraminal stenosis. L4-L5: Discectomy, posterior decompression and posterior spinal fusion. There is moderate bilateral facet arthropathy. No central canal stenosis or foraminal stenosis. L5-S1: Discectomy, posterior decompression and posterior spinal fusion. There is moderate bilateral facet arthropathy. No central canal stenosis or foraminal stenosis. Soft tissues: No retroperitoneal masses or hematomas. Visualized aorta is normal in caliber. There is a 1.3 cm calcified density in the left bladder base near the left UVJ, suspicious for a large left UVJ stone. IMPRESSION: 1. Degenerative and postsurgical changes in lumbar spine as described. 2. Mild central canal stenosis at L1-L2 and L2-L3. 3. No foramina stenosis. 2. A 1.3 cm calcified density in the left bladder base near the left UVJ suspicious for a large UVJ stone. If clinically indicated, followup CT KUB may be helpful. Dictated by: Coby Self M.D. on 12/22/2018 at 17:34 Approved by: Coby Self M.D. on 12/22/2018 at 17:59
== END ==
PROVIDERS: Family Provider Internal Medicine; PCP Internal Medicine; Visit Provider Orthopaedic Surgery Orthopaedic Surgery of the Spine
DX: M47.26 Other spondylosis with radiculopathy, lumbar region (principal); M51.16 Intervertebral disc disorders with radiculopathy, lumbar region; M48.061 Spinal stenosis, lumbar region without neurogenic claudication; Z98.1 Arthrodesis status
CPT/HCPCS: 72131

== ENCOUNTER 2019-01-02 19:38 | Observation (INO) | payer MEDICARE, SELFPAY ==
[2018-11-26 16:02] VITALS: BMI 23.3
[2019-01-02 19:53] VITALS: BP 133/62; PULSE 66; RESP 16; TEMP 36.9; O2SAT 97; BMI 23.3
[2019-01-02] MEDS: ONDANSETRON 4 MG ODT SL (19:59)
--- NOTE | 2019-01-02 20:19 | PC.NURSE ---
pt c/o nausea started yesterday and dizziness getting worse throughout the day. pt states when she stood up she became lightheaded and felt like she was going to pass out. pt thinks it may be due to tapering off her gabapenten and oxycodone too fast.
[2019-01-02 20:20] VITALS: BP 161/89; PULSE 64; RESP 15; O2SAT 100
--- NOTE | 2019-01-02 20:20 | ED.NAVMDI ---
HPI - Nausea/Vomiting/Diarrhea General Chief complaint: Nausea/Vomiting/Diarrhea Stated complaint: NAUSEA FEELS LIKE PASSING OUT Time Seen by Provider: 01/02/19 20:16 Source: patient and family Mode of arrival: wheelchair Limitations: no limitations History of Present Illness HPI Narrative: 73-year-old female nonsmoker presents with multiple symptoms over the past few days. Patient had a lumbar fusion surgery on November 26 to help prevent potential sequela from her underlying scoliosis. In the aftermath she unfortunately developed a radiculopathy which has required significant medications including Neurontin and oxycodone. She had been taking large doses of both including 2100 mg of Neurontin and 30 mg of oxycodone. She had become very sluggish with no appetite and had very little energy. She was unhappy with how she was feeling on these large doses of medications and attempted to wean herself without the help of her physician over the past day or 2. She cut her dose of Neurontin in half and drastically decreased her oxycodone. She feels dizzy and has nearly passed out on multiple occasions. Her appetite is very poor and she is quite nauseated. She feels agitated and anxious. Related Data Home Medications Medication Instructions Recorded Confirmed bupropion HCl 150 mg PO QAM #0 06/29/11 01/03/19 escitalopram oxalate [Lexapro] 10 mg PO QDAY #0 06/29/11 01/03/19 alendronate 70 mg PO QWEEK 11/11/18 01/03/19 gabapentin 300 mg PO DIRECTED 01/03/19 01/03/19 levothyroxine 75 mg PO DAILY 01/03/19 01/03/19 oxycodone 5 mg PO DIRECTED 01/03/19 01/03/19 Previous Rx's Medication Instructions Recorded acetaminophen 650 mg PO Q6HR PRN #60 tab 11/29/18 docusate sodium 100 mg PO BID #60 cap 11/29/18 Allergies Allergy/AdvReac Type Severity Reaction Status Date / Time No Known Drug Allergies Allergy Verified 01/02/19 19:51 Review of Systems Constitutional Reports chills, Reports daytime sleepiness, Reports difficulty sleeping, Reports fatigue, Denies fever(s), Denies lethargy, Reports poor appetite and Denies weakness Eyes Denies change in vision, Denies eye discharge, Denies irritation and Denies loss of vision ENT Ears, Nose, Mouth, and Throat: Denies change in voice, Denies neck pain and Denies sore throat Cardiovascular Denies chest pain, Denies irregular heart rhythm, Denies lightheadedness, Denies palpitations, Denies dyspnea, Denies dyspnea on exertion and Denies orthopnea Respiratory Denies cough, Denies dyspnea, Denies dyspnea on exertion and Denies wheezing Gastrointestinal Gastrointestinal: Denies abdominal pain, Denies change in bowel habits, Denies diarrhea, Reports nausea and Denies vomiting Genitourinary Denies hematuria, Denies flank pain, Denies urinary incontinence and Denies urinary urgency Musculoskeletal Denies neck pain Integumentary/Breasts Denies pruritus, Denies erythema, Denies rash and Denies wounds Neurologic Denies confusion, Denies loss of vision and Denies weakness Psychiatric Denies anxiety, Denies confusion, Denies depression, Denies homicidal ideation and Denies suicidal ideation Endocrine Reports fatigue and Denies palpitations Hematologic/Lymphatic Denies easy bruising Allergic/Immunologic Denies wheezing [facility] Medical History Osteoporosis (Acute) Depression (Acute) Elevated cholesterol (Acute) Hypothyroid (Acute) Near syncope (Acute) Trochanteric bursitis of both hips (Acute) Surgical History History of bilateral tubal ligation (Acute) Hx of appendectomy (Acute) Hx of dilation and curettage (Acute) Hx of eye surgery (Acute ~2009) Hx of laminectomy (Acute 11/18/17) S/P epidural steroid injection (Acute) Family History (Updated 01/03/19 @ 02:17 by GINNY Collazo) Father Cardiovascular disease Mother Dementia Brother Cardiovascular disease Sister In good health Social History household members: spouse Smoking Status: Never smoker Family History Father Cardiovascular disease Mother Dementia Brother Cardiovascular disease Sister In good health Social History household members: spouse Smoking Status: Never smoker Exam Narrative Exam Narrative: GENERAL: 73F appears younger than stated age, she is clearly not feeling well HEAD: Atraumatic. Normocephalic. No temporal or scalp tenderness. EYES: Pupils equal round and reactive. Extraocular motions intact. No scleral icterus. No injection or drainage. ENT: Dry mucous membranes. Nose without bleeding, purulent drainage or septal hematoma. Throat without erythema, tonsillar hypertrophy or exudate. Uvula midline. Airway patent. NECK: Trachea midline. No JVD or lymphadenopathy. Supple, nontender, no meningeal signs. CARDIOVASCULAR: Regular rate and rhythm without murmurs, gallops, or rubs. RESPIRATORY: Clear to auscultation. Breath sounds equal bilaterally. No wheezes, rales, or rhonchi. GASTROINTESTINAL: Abdomen soft, non-tender, nondistended. No hepato-splenomegaly, or palpable masses. No guarding. EXTREMITIES: No clubbing, cyanosis, or edema. No joint tenderness, effusion, or edema noted. BACK: Nontender without deformity or crepitance. No flank tenderness. NEURO: AOx3. SKIN: No rash or erythema. Poor skin turgor Initial Vital Signs Initial Vital Signs: Vital Signs Temperature 98.4 F 01/02/19 19:53 Pulse Rate 66 01/02/19 19:53 Respiratory Rate 16 01/02/19 19:53 Blood Pressure 133/62 01/02/19 19:53 Pulse Oximetry 97 01/02/19 19:53 Scores GCS Skyler coma scale eye opening: Spontaneous Elton coma scale verbal response: Confused Elton coma scale motor response: Obey commands Skyler coma scale total score: 14 Course Orders Ordered: ED Orders 01/03/19 Urinalysis and Microscopic Routine 01/03/19 05:17 Basic Metabolic Panel Routine Acetaminophen (Tylenol) 650 mg PO Q6HR PRN PRN Reason: As Needed for Fever/Mild Pain Al Hydrox/Mg Hydrox/Simethicone (Maalox Plus) 30 ml PO Q6HR PRN PRN Reason: Dyspepsia Bisacodyl (Dulcolax) 10 mg PO DAILY PRN PRN Reason: Constipation Bupropion HCl (Wellbutrin Xl) 150 mg PO DAILY DEANNA Docusate Sodium (Colace) 100 mg PO BID DEANNA Escitalopram Oxalate (Lexapro) 10 mg PO DAILY DEANNA Gabapentin (Neurontin) 300 mg PO Q6H DEANNA Last Admin: 01/03/19 02:00 Dose: 300 mg Sodium Chloride (Normal Saline 0.9%) 1,000 mls @ 100 mls/hr IV CONT DEANNA Last Admin: 01/03/19 06:27 Dose: 100 mls/hr Admin: 01/03/19 05:03 Dose: Not Given Levothyroxine Sodium (Synthroid) 75 mcg PO 0600 DEANNA Oxycodone HCl (Percolone) 5 mg PO Q6HR PRN PRN Reason: Pain, Moderate (4-6) Pantoprazole Sodium (Protonix) 20 mg PO 0600 DEANNA Last Admin: 01/03/19 06:22 Dose: 20 mg Promethazine HCl (Phenadoz) 12.5 mg FL Q6HR PRN PRN Reason: Nausea And Vomiting Discontinued Medications Sodium Chloride (Normal Saline 0.9%) 1,000 mls @ 150 mls/hr IV CONT DEANNA Stop: 01/03/19 01:36 Last Admin: 01/02/19 21:37 Dose: Not Given Sodium Chloride (Normal Saline 0.9%) 1,000 mls @ 1,000 mls/hr IV BOLUS ONE Stop: 01/02/19 21:19 Last Infusion: 01/02/19 21:43 Dose: 150 mls/hr Admin: 01/02/19 20:28 Dose: 1,000 mls/hr Ondansetron HCl (Zofran Odt) 4 mg SL NOW ONE Stop: 01/02/19 19:59 Last Admin: 01/02/19 19:59 Dose: 4 mg Pantoprazole Sodium (Protonix) 40 mg IV NOW ONE Stop: 01/02/19 20:21 Last Admin: 01/02/19 20:28 Dose: 40 mg Consultations Consultation #1: Hospitalist is happy to accept this patient Vital Signs - 8 hr 01/02/19 23:02 01/02/19 23:43 01/03/19 00:49 Temperature 98.0 F Pulse Rate 62 67 71 Respiratory Rate 15 16 16 Blood Pressure 154/69 H Blood Pressure [Right Arm] 150/65 H 150/67 H Pulse Oximetry 98 99 98 01/03/19 03:18 Temperature 97.9 F Pulse Rate 79 Respiratory Rate 18 Blood Pressure 131/56 L Blood Pressure [Right Arm] Pulse Oximetry 100 MDM - Nausea/Vomiting/Diarrhea Lab Data Result diagrams: 01/02/19 20:23 01/03/19 05:17 Lab Results 01/02/19 01/02/19 01/03/19 Range/Units 20:23 20:23 05:17 WBC 6.5 (4.5-11.0) X10^3/uL RBC 4.18 (4.0-5.2) X10^6/uL Hgb 12.8 (12.0-16.0) g/dL Hct 37.7 (36-46) % MCV 90.1 (80-100) fL MCH 30.7 (26-34) PG MCHC 34.1 (30-36) % RDW 14.5 (11.6-14.8) % Plt Count 211 (150-400) X10^3/uL Neut % (Auto) 72.1 (50-75) % Lymph % (Auto) 17.2 L (25-40) % [place] % (Auto) 7.5 (3-14) % Eos % (Auto) 1.9 L (2-4) % Baso % (Auto) 1.3 (0-2) % Neut # (Auto) 4700 (3106-5531) /uL Lymph # (Auto) 1100 (6777-3745) /uL [place] # (Auto) 500 (0-900) /uL Eos # (Auto) 100 (0-450) /uL Baso # (Auto) 100 (0-100) /uL Sodium 133 L 138 (137-145) mmol/L Potassium 3.9 4.0 (3.4-5.1) mmol/L Chloride 97 L 104 (98-107) mmol/L Carbon Dioxide 26 28 (22-32) mmol/L BUN 21 H 15 (7-17) mg/dL Creatinine 0.50 L 0.60 (0.52-1.04) mg/dL Estimated GFR > 60.0 > 60.0 (>60) mL/min BUN/Creatinine Ratio 42.0 H 25.0 H (6-22) Glucose 113 H 86 (80-110) mg/dL Calcium 9.2 9.3 (8.4-10.2) mg/dL Troponin I < 0.012 (0.01-0.034) ng/mL Urine Dip Bedside Urine Glucose Negative Bedside Urine Bilirubin - Negative Bedside Urine Ketone +/- 5 Urine Specific Green[place] 1.015 Bedside Urine Occult Blood - Negative Bedside Urine pH 7.0 Bedside Urine Protein - Negative Bedside Urine Urobilinogen - Negative Bedside Urine Nitrite - Negative Bedside Urine Leukocytes - Negative Esterase MDM Narrative Medical decision making narrative: Patient's symptoms are very much likely due to withdrawal symptoms from abrupt cessation Neurontin as well as oxycodone. Furthermore secondary to her intense nausea and confusion she has become weak and dehydrated as a lack appropriate oral intake. She will require hospitalization for stabilization of her condition as well as an appropriate tapering plan Discharge Plan Departure Patient Disposition: Admitted as Observation Clinical Impression: Withdrawal symptoms, drug or narcotic Qualifiers: Substance type: opioid Qualified Code(s): F11.23 - Opioid dependence with withdrawal Discharge Date/Time: 01/03/19 00:35 Interventions: ED Discharge Assessment Last Done: 01/03/19 00:23 Admit Date/Time: 01/02/19 23:50 Admit Provider: Elmer Carr
--- NOTE | 2019-01-02 20:21 | DI.RAD.S_ITS ---
PROCEDURE: XR ACUTE ABDOMEN SERIES INDICATIONS: nausea/vomiting/diarrhea TECHNIQUE: One view chest and two views of the abdomen were acquired. COMPARISON: None. FINDINGS: Surgical changes and devices: Fusion hardware at L3-S1 levels are seen. Chest: Lungs are clear. Heart size is mildly enlarged. No pleural effusions. No pneumoperitoneum. Abdomen: Bowel gas pattern is normal. Fecal stasis throughout the colon is seen. No suspicious calcifications. Visualized solid organ contours appear normal. Bones: No suspicious bony lesions. IMPRESSION: Findings suggestive of constipation. No bowel obstruction or gross free air. No acute cardiopulmonary pathology. Dictated by: Vasquez Lopez M.D. on 01/02/2019 at 21:17 Approved by: Vasquez Lopez M.D. on 01/02/2019 at 21:20
[2019-01-02] MEDS: SODIUM CHLORIDE 0.9% 1,000 ML 1000 ML IV (20:28)
[2019-01-02] MEDS: PANTOPRAZOLE 40 MG VIAL IV (20:28)
[2019-01-02 20:30] LABS: Add Manual Diff / Slide Review NO; Basophils Absolute Auto 100 /uL (0-100); Basophils Percent Auto 1.3 % (0-2); Eosinophils Absolute Auto 100 /uL (0-450); Eosinophils Percent Auto 1.9 % (2-4); Hematocrit 37.7 % (36-46); Hemoglobin 12.8 g/dL (12.0-16.0); Lymphocytes Absolute Auto 1100 /uL (1100-4500); Lymphocytes Percent Auto 17.2 % (25-40); Mean Corpuscular HGB Conc 34.1 % (30-36); Mean Corpuscular Hemoglobin 30.7 PG (26-34); Mean Corpuscular Volume 90.1 fL (80-100); Monocytes Absolute Auto 500 /uL (0-900); Monocytes Percent Auto 7.5 % (3-14); Neutrophils Absolute Auto 4700 /uL (1500-7000); Neutrophils Percent Auto 72.1 % (50-75); Platelet Count 211 X10^3/uL (150-400); Red Blood Cell Count 4.18 X10^6/uL (4.0-5.2); Red Cell Distribution Width 14.5 % (11.6-14.8); White Blood Cell Count 6.5 X10^3/uL (4.5-11.0)
[2019-01-02 20:43] LABS: Blood Urea Nitrogen 21 mg/dL (7-17); Calcium 9.2 mg/dL (8.4-10.2); Carbon Dioxide 26 mmol/L (22-32); Chloride 97 mmol/L (98-107); Estimated Glomerular Filt Rate > 60.0 mL/min (>60); Glucose 113 mg/dL (80-110); HEMOLYSIS 21 (0-50); Potassium 3.9 mmol/L (3.4-5.1); Sodium 133 mmol/L (137-145)
[2019-01-02 20:55] LABS: Troponin I < 0.012 ng/mL (0.01-0.034)
[2019-01-02 23:02] VITALS: BP 150/65; PULSE 62; RESP 15; O2SAT 98
[2019-01-02 23:43] VITALS: BP 150/67; PULSE 67; RESP 16; O2SAT 99
[2019-01-03 00:40] VITALS: BMI 23.3
[2019-01-03 00:49] VITALS: BP 154/69; PULSE 71; RESP 16; TEMP 36.7; O2SAT 98
--- NOTE | 2019-01-03 01:49 | P.HP_ITS ---
History of Present Illness Date Patient Seen: 01/03/19 Time Patient Seen: 01:09 Chief complaint: NAUSEA FEELS LIKE PASSING OUT Narrative: This is a 73-year-old female patient with a history of spinal stenosis, scoliosis and status post lumbar fusion, hypothyroidism, depression and osteoporosis who presents to the ER for near syncope, difficulty concentrating, nausea and vomiting. The patient was hospitalized from 11/26/2018 to 11/30/2018 when she had undergone a laminectomy and fusion with instrumentation of L3-4 and L5-S1. Following the procedure the patient described a sharp searing pain in her left leg and foot. She had been started on gabapentin and titrated up to 2100 mg daily on a regimen of 300 mg 5 times daily with 600 mg at bedtime. She had also been prescribed oxycodone immediate release 5 mg 1-2 tablets every 4-6 hours which the patient was taking approximately 30 mg daily. On Saturday the patient reports having an epidural steroid injection which markedly improved her pain. as such the patient elected to decrease her medication dosage cutting both her oxycodone and Neurontin in half precipitating withdrawal symptoms. The patient's pain is isolated to the left leg. She reports minimal back pain at the surgical site only occurring sporadically with certain movements. The patient denies other complaints of recent illness including fevers or chills, headaches or dizziness, nasal congestion or sore throat. She has no complaints of chest pain, shortness of breath or cough. She has had nausea but denies pain. x-ray at the ER refers to constipation are the patient has been having daily stools but is taking frequent opiates. She reports no difficulty urinating and has no frequency or urgency or burning. Patient History Medical History Osteoporosis (Acute) Depression (Acute) Elevated cholesterol (Acute) Hypothyroid (Acute) Near syncope (Acute) Trochanteric bursitis of both hips (Acute) Surgical History (Updated 11/29/18 @ 09:00 by Ivanna Luis PA-C) History of bilateral tubal ligation (Acute) Hx of appendectomy (Acute) Hx of dilation and curettage (Acute) Hx of eye surgery (Acute ~2009) Hx of laminectomy (Acute 11/18/17) S/P epidural steroid injection (Acute) Family History (Updated 01/03/19 @ 02:17 by GINNY Collazo) Father Cardiovascular disease Mother Dementia Brother Cardiovascular disease Sister In good health Social History household members: spouse Smoking Status: Never smoker Family & Social History Family History (Updated 01/03/19 @ 02:17 by GINNY Collazo) Father Cardiovascular disease Mother Dementia Brother Cardiovascular disease Sister In good health Social History: household members spouse Prior Living Arrangements House Safety & Behavioral: Feels Safe in Current Yes Environment Been Physically Hurt or No Threatened By a Person Suicidal Ideation Description None Tobacco & Substance use: Smoking Status Never smoker alcohol intake frequency other Substance Use Type does not use Comment: The patient lives in a single family home with her . Her parents have both father from [place] in her mother had dementia. She has 1 brother had cardiovascular disease status post CABG and a sister who is in good health. Advanced directive: the patient is a full code and designates her to be surrogate decision maker Meds Home Medications Medication Instructions Recorded Confirmed Type bupropion HCl 150 mg PO QAM #0 06/29/11 11/26/18 History escitalopram oxalate [Lexapro] 10 mg PO QDAY #0 06/29/11 11/26/18 History levothyroxine [Synthroid] 0.75 mcg PO QAM #0 06/29/11 11/26/18 History alendronate 70 mg PO QWEEK 11/11/18 11/26/18 History ranitidine HCl 300 mg PO DAILY 11/11/18 11/26/18 History acetaminophen 650 mg PO Q6HR PRN #60 tab 11/29/18 Rx alum-mag hydroxide-simeth [Mag-Al 30 ml PO QID PRN #60 ml 11/29/18 Rx Plus] ascorbic acid (vitamin C) [Vitamin 500 mg PO BID #60 tab 11/29/18 Rx C] docusate sodium 100 mg PO BID #60 cap 11/29/18 Rx ferrous sulfate 325 mg PO BIDWM #60 tab 11/29/18 Rx hydrocodone-acetaminophen 1 tab PO Q4HR PRN #50 tab 11/29/18 Rx tramadol 50 mg PO QID PRN #60 tab 11/29/18 Rx Allergies Allergy/AdvReac Type Severity Reaction Status Date / Time No Known Drug Allergies Allergy Verified 01/02/19 19:51 Review of Systems Review of Systems All systems reviewed & are unremarkable except as noted in HPI and below Exam Vital Signs (past 8 hours): - 01/02/19 19:53 01/02/19 20:20 01/02/19 23:02 Temperature 98.4 F Pulse Rate 66 64 62 Respiratory Rate 16 15 15 Blood Pressure 133/62 Blood Pressure [Right Arm] 161/89 H 150/65 H Pulse Oximetry 97 100 98 01/02/19 23:43 01/03/19 00:49 01/03/19 01:05 Temperature 98.0 F 97.9 F Pulse Rate 67 71 77 Respiratory Rate 16 16 18 Blood Pressure 154/69 H 145/55 H Blood Pressure [Right Arm] 150/67 H Pulse Oximetry 99 98 98 Oxygen Delivery Method Room Air Narrative Exam Narrative: GENERAL APPEARANCE: well developed, well nourished, in no acute distress. HEAD: Normocephalic, atraumatic, no scalp lesions. EYES: pupils equal, round, reactive to light and accommodation, sclera non- icteric, extraocular movement intact . EARS: normal external structures, no ear pain NOSE: sinuses non tender to percussion, no rhinorrhea ORAL CAVITY: mucosa moist without lesions or exudate, palate normal, tongue in midline. THROAT: normal, no erythema, no exudate, pharynx normal, uvula midline. NECK/THYROID: neck supple, no jugular venous distention, no carotid bruit, no thyromegaly, trachea midline. LYMPH NODES: no cervical or supraclavicular lymphadenopathy. SKIN: warm and dry, no suspicious lesions, no rashes, good turgor. HEART: regular rate and rhythm, S1-S2 without murmur, rubs, gallops, brisk capillary refill, no edema LUNGS: clear to auscultation bilaterally, no coarseness crackles or wheezing, no cough present CHEST: Symmetrical movement, no accessory muscle use, no pain to AP and lateral compression. ABDOMEN: Soft, no distention, no epigastric or abdominal tenderness on palpation, no guarding or peritoneal signs, no organomegaly, no flank or suprapubic tenderness BACK: Healing surgical scar midline lumbar spine as well as healing surgical scar over right posterior superior iliac crest, no swelling or redness, no complaints of pain on palpation EXTREMITIES: moves all extremities, strength is 5/5 and symmetrical, well perfused. NEUROLOGIC: AAO x4, cranial nerves II-XII grossly intact , motor strength normal upper and lower extremities, patient with hyperthesias of anterior left leg and foot, hearing grossly normal to speech. PSYCH: alert, cognitive function intact, good eye contact, stable mood with congruent affect Objective Labs Result Diagrams: 01/02/19 20:23 01/02/19 20:23 Labs: Laboratory Results - last 24 hr 01/02/19 01/02/19 20:23 20:23 WBC 6.5 RBC 4.18 Hgb 12.8 Hct 37.7 MCV 90.1 MCH 30.7 MCHC 34.1 RDW 14.5 Plt Count 211 Neut % (Auto) 72.1 Lymph % (Auto) 17.2 L [place] % (Auto) 7.5 Eos % (Auto) 1.9 L Baso % (Auto) 1.3 Neut # (Auto) 4700 Lymph # (Auto) 1100 [place] # (Auto) 500 Eos # (Auto) 100 Baso # (Auto) 100 Sodium 133 L Potassium 3.9 Chloride 97 L Carbon Dioxide 26 BUN 21 H Creatinine 0.50 L Estimated GFR > 60.0 BUN/Creatinine Ratio 42.0 H Glucose 113 H Calcium 9.2 Troponin I < 0.012 Assessment & Plan Assessment & Plan narrative: Patient is admitted to the hospital for management of withdrawal symptoms and guided tapering of medications. 1. Withdrawal symptoms from oxycodone, acute -patient prescribed oxycodone 5 mg of which she has been taking approximately 30 mg daily for approximately 5 weeks -following epidural steroid injection her pain is markedly improved prompting the patient to decrease her oxycodone dose to 10-15 mg daily -patient developed nausea, vomiting, sleep disturbance and anxiety. -will start oxycodone 5 mg every 6 hours and taper from there. 2. Withdrawal symptoms from Neurontin, acute -the patient has been taking Neurontin 300 mg 5 times per day and 600 mg at night for total of 2100 mg daily -the patient reports that she has decreased her dosage daily is presently taking 1200 mg daily. -patient reports dizziness, fatigue and anxiety which overlaps with withdrawal symptoms of opiates. -will continue gabapentin 300 mg every 6 hours for total of 1200 mg daily and will taper weekly 3. Neuropathic pain, present on admission, active -patient's left leg pain is reported to be approximately 25% of what it had been prior to her steroid injection. -she feels this is manageable pain level this time will continue with the dosing strategies for oxycodone and gabapentin discussed above 4. Depression, chronic -will continue patient's home medications of bupropion 150 mg daily as well as escitalopram 10 mg daily -prior the patient's sleep disturbance may be related to side effects of bupropion 5. Osteoporosis, chronic -the patient has been on Fosamax weekly. She has not taken medication since her surgery, she has been unable to sit upright for 30 minutes due to back pain -patient to continue calcium and vitamin-D supplementation The patient is admitted to the hospital related to severity of symptoms and potential for complications. The patient is admitted observation with expected length stay less than 2 midnights. Quality VTE Deep Vein Thrombosis/Pulmonary Embolism Present on Admission: No
[2019-01-03] MEDS: GABAPENTIN 300 MG CAPSULE PO ×2 (02:00→08:55)
[2019-01-03 03:18] VITALS: BP 131/56; PULSE 79; RESP 18; TEMP 36.6; O2SAT 100
[2019-01-03 06:08] LABS: Blood Urea Nitrogen 15 mg/dL (7-17); Calcium 9.3 mg/dL (8.4-10.2); Carbon Dioxide 28 mmol/L (22-32); Chloride 104 mmol/L (98-107); Estimated Glomerular Filt Rate > 60.0 mL/min (>60); Glucose 86 mg/dL (80-110); HEMOLYSIS < 15 (0-50); Sodium 138 mmol/L (137-145)
[2019-01-03] MEDS: PANTOPRAZOLE 20 MG TABLET PO ×2 (06:22→08:55)
[2019-01-03] MEDS: SODIUM CHLORIDE 0.9% 1,000 ML 100 ML IV (06:27)
[2019-01-03 08:20] VITALS: BP 135/65; PULSE 87; RESP 20; TEMP 36.7; O2SAT 96
[2019-01-03] MEDS: ACETAMINOPHEN 325 MG TABLET 650 MG PO (08:52)
[2019-01-03] MEDS: ESCITALOPRAM 10 MG TABLET PO (08:55)
[2019-01-03] MEDS: DOCUSATE 100 MG CAPSULE PO (08:55)
[2019-01-03] MEDS: LEVOTHYROXINE 75 MCG TABLET PO (08:56)
[2019-01-03] MEDS: buPROPion XL 150 MG TAB PO (09:15)
[2019-01-03 10:05] VITALS: O2SAT 98
--- NOTE | 2019-01-03 10:19 | P.DS_ITS ---
History of Present Illness Date Patient Seen: 01/03/19 Chief complaint: NAUSEA FEELS LIKE PASSING OUT Narrative: Written by Elmer GROSS: This is a 73-year-old female patient with a history of spinal stenosis, scoliosis and status post lumbar fusion, hypothyroidism, depression and osteoporosis who presents to the ER for near syncope, difficulty concentrating, nausea and vomiting. The patient was hospitalized from 11/26/2018 to 11/30/2018 when she had undergone a laminectomy and fusion with instrumentation of L3-4 and L5-S1. Following the procedure the patient described a sharp searing pain in her left leg and foot. She had been started on gabapentin and titrated up to 2100 mg daily on a regimen of 300 mg 5 times daily with 600 mg at bedtime. She had also been prescribed oxycodone immediate release 5 mg 1-2 tablets every 4-6 hours which the patient was taking approximately 30 mg daily. On Saturday the patient reports having an epidural steroid injection which markedly improved her pain. as such the patient elected to decrease her medication dosage cutting both her oxycodone and Neurontin in half precipitating withdrawal symptoms. The patient's pain is isolated to the left leg. She reports minimal back pain at the surgical site only occurring sporadically with certain movements. The patient denies other complaints of recent illness including fevers or chills, h eadaches or dizziness, nasal congestion or sore throat. She has no complaints of chest pain, shortness of breath or cough. She has had nausea but denies pain. x-ray at the ER refers to constipation are the patient has been having daily stools but is taking frequent opiates. She reports no difficulty urinating and has no frequency or urgency or burning. Discharge Providers Date of admission: 01/02/19 23:50 Discharge Date: 01/03/19 Primary care physician: Wilber Morfin MD Discharge provider: Tika Sheldon DO Summary Discharge Diagnosis: 1. Possible acute narcotic withdrawal versus over medication, present on admission. Resolved. 2. Possible acute withdrawal symptoms from gabapentin, present on admission. Resolved. 3. Chronic postsurgical neuropathic pain, present on admission. Active. 4. Depression, chronic, present on admission. Stable. 5. Osteoporosis, chronic, present on admission. Stable. Hospital Course: Masha Linares is a 73-year-old female patient a past medical history significant for spinal stenosis, scoliosis and status post lumbar fusion, hypothyroidism, depression, osteoporosis, and recent laminectomy and fusion with instrumentation of L3-4 and L5-S1 11/26/2018 to 11/30/2018 who presented to the ED for near syncope, difficulty concentrating, nausea and vomiting. 1. Possible acute narcotic withdrawal versus over medication, present on admission. Resolved. -Patient prescribed oxycodone 5 mg of which she has been taking approximately 30 mg daily for approximately 5 weeks. Following epidural steroid injection her pain was markedly improved prompting the patient to decrease her oxycodone dose to 10-15 mg daily. Patient then developed nausea, vomiting, sleep disturbance and anxiety. Possibly overmedicated as pain had decreased substantially causing nausea and vomitting versus under medicated and experiencing withdrawal. -Discharged with prescription for hydrocodone 5-325 mg every 4-6 hours as needed for pain. Continued management outpatient per PCP or ortho. 2. Possible acute withdrawal symptoms from gabapentin, present on admission. Resolved. -Patient has been taking Neurontin 300 mg 5 times per day and 600 mg at night for total of 2100 mg daily. She decreased her dosage due to daytime somnolence and improved pain after LEEROY on her own with steep taper down to 1200 mg daily. Recommended gabapentin 300 mg daily in the morning and 600 mg at night. Patient reports dizziness, fatigue and anxiety which overlaps with withdrawal symptoms from narcotics as above. -Recommended gabapentin 300 mg daily in the morning and 600 mg at night. Continued management outpatient per PCP or ortho. 3. Chronic postsurgical neuropathic pain, present on admission. Active. -Patient's left leg neuropathy improved and neuropathic pain improved to 25% of what it had been prior to her LEEROY. Seems to wax and wane as she reports slightly worse neuropathic pain today, especially at night.. -She feels this is manageable pain level at this time and will continue with the dosing strategies for hydrocodone and gabapentin. 4. Depression, chronic, present on admission. Stable. -Continued home medications of bupropion 150 mg daily and escitalopram 10 mg daily. -Prior the patient's sleep disturbance may be related to side effects of bupropion. 5. Osteoporosis, chronic, present on admission. Stable. -Patient has been on Fosamax weekly and has not taken medication since her surgery as she has been unable to sit upright for 30 minutes due to back pain. -Continued calcium and vitamin-D3 supplementation. Status at Discharge Overall status at discharge: patient is progressing back to baseline Exam Vital Signs (past 8 hours): - 01/03/19 03:18 01/03/19 08:20 Temperature 97.9 F 98.1 F Pulse Rate 79 87 Respiratory Rate 18 20 Blood Pressure 131/56 L 135/65 Pulse Oximetry 100 96 Oxygen Delivery Method Room Air Narrative Exam Narrative: General: Elderly female lying in bed and in no acute distress, appears younger than stated age, well-developed, well-nourished, anxious but appropriately interactive. HEENT: Normocephalic, atraumatic. External ears without defect. Pupils equal, round, and reactive to light. Anicteric sclerae, moist conjunctivae, and no lid lag. Neck: Supple with full range of motion.No lymphadenopathy or thyromegaly. Cardiovascular: Regular rate and rhythm without murmurs, rubs, or gallops appreciated. Pulmonary: Clear to auscultation bilaterally without crackles, wheezes, or rhonchi. Normal respiratory effort with no use of accessory muscles. Abdomen: Soft, bowel sounds present, nontender, nondistended. No hepatosplenomegaly or masses appreciated. Extremities: No clubbing or cyanosis. Trace bipedal edema. Skin: Normal temperature, turgor, and texture; no rash, ulcers, or subcutaneous nodules appreciated. Neurological: Cranial nerves grossly intact. Psychiatric: Normal mood and affect. Alert and oriented to person, place, and time. Objective Labs Result Diagrams: 01/02/19 20:23 01/03/19 05:17 Labs: Laboratory Results - last 24 hr 01/02/19 01/02/19 01/03/19 20:23 20:23 05:17 WBC 6.5 RBC 4.18 Hgb 12.8 Hct 37.7 MCV 90.1 MCH 30.7 MCHC 34.1 RDW 14.5 Plt Count 211 Neut % (Auto) 72.1 Lymph % (Auto) 17.2 L Summers % (Auto) 7.5 Eos % (Auto) 1.9 L Baso % (Auto) 1.3 Neut # (Auto) 4700 Lymph # (Auto) 1100 Summers # (Auto) 500 Eos # (Auto) 100 Baso # (Auto) 100 Sodium 133 L 138 Potassium 3.9 4.0 Chloride 97 L 104 Carbon Dioxide 26 28 BUN 21 H 15 Creatinine 0.50 L 0.60 Estimated GFR > 60.0 > 60.0 BUN/Creatinine Ratio 42.0 H 25.0 H Glucose 113 H 86 Calcium 9.2 9.3 Troponin I < 0.012 Discharge Plan Discharge Plan Patient Disposition: Home Discharge comment: You are being discharged home. Please keep your follow-up appointments next week with both Dr. Palma and Dr. Morfin as scheduled. Your provided a prescription for hydrocodone 5-325 mg every 4-6 hours as needed for pain. Continue gabapentin 300 mg daily in the morning and 600 mg daily at bedtime. You may continue gabapentin to help with neuropathic pain and if this is not working in you wish to be tapered off it would be at the discretion of your PCP Dr. Morfin but much slower than you were tapering off on your own. Your symptoms may have been secondary to withdrawal versus over medicated with narcotic. Discharge Med Rec/Prescriptions Prescriptions: New hydrocodone-acetaminophen 5-325 mg tablet 1 tab PO Q4-6H PRN (Reason: pain) Qty: 30 RF: 0 ondansetron HCl [Zofran] 4 mg tablet 4 mg PO BID-TID PRN (Reason: nausea and vomiting) Qty: 20 RF: 0 Continued escitalopram oxalate [Lexapro] 5 MG tablet 10 mg PO QDAY Qty: 0 RF: 0 bupropion HCl 150 mg Tablet Extended Release 24 Hr 150 mg PO QAM Qty: 0 RF: 0 alendronate 70 mg Tablet 70 mg PO QWEEK RF: 0 acetaminophen 325 mg Tablet 650 mg PO Q6HR PRN (Reason: Pain, Mild (1-3)) Qty: 60 RF: 0 docusate sodium 100 mg Capsule 100 mg PO BID Qty: 60 RF: 0 levothyroxine 75 mcg tablet 75 mg PO DAILY RF: 0 gabapentin 300 mg capsule 300 mg PO DIRECTED Qty: 30 RF: 0 Discontinued oxycodone 5 mg tablet 5 mg PO DIRECTED RF: 0 Follow up/Referrals: Wilber Morfin MD [Primary Care Provider] - 1 Week Provider Discharge Instructions Diet: Diet as Tolerated and Regular Activity: Activity as tolerated with Visit Report/Discharge Packet Instructions: Peripheral Neuropathy, Neuropathic Pain Discharge Data Primary Care Provider: Wilber Morfin Attending Provider: Elmer Carr Admit Date/Time: 01/02/19 23:50 Discharges patient from system. Discharge Date/Time: 01/03/19 11:15 Quality VTE Deep Vein Thrombosis/Pulmonary Embolism Present on Admission: No
--- NOTE | 2019-01-03 11:16 | CM.DANOTE ---
DCP: Case received, EMR received and met with patient. Introduced self and role. DCP template completed with information currently available. Patient is a 73 year old female who admitted yesterday evening to the care of the hospitalist team. PCP: Dr. Morfin. Payer: confirmed: Medicare/[employer]. Patient came to hospital via family vehicle due to nausea and fatigue. Patient had been here recently for lumbar surgery secondary to spinal stenosis. Had been taking pain medication, and hospitalist was concerned about possible withdrawal from her medications. She is ordering Gabapentin for her, and tapering her from her pain medications. Met briefly with patient, alert and oriented, lives with spouse in [facility]. P: Patient will be discharged home today. Antonia Car RN/Rip Saw Operator
== END 2019-01-03 11:15 | disposition home or self-care (01) ==
LOC: ED 22:38 → AC 23:51
PROVIDERS: Admitting Provider Nurse Practitioner Adult Health; Emergency Provider Emergency Medicine; Family Provider Internal Medicine; PCP Internal Medicine; Visit Provider Nurse Practitioner Adult Health
DX: F11.23 Opioid dependence with withdrawal (principal); F19.230 Other psychoactive substance dependence with withdrawal, uncomplicated; R11.2 Nausea with vomiting, unspecified; M79.2 Neuralgia and neuritis, unspecified; M41.9 Scoliosis, unspecified; E03.9 Hypothyroidism, unspecified; E78.00 Pure hypercholesterolemia, unspecified; F32.9 Major depressive disorder, single episode, unspecified; E86.0 Dehydration; M81.0 Age-related osteoporosis without current pathological fracture
CPT/HCPCS: 36415; 36591; 74022; 80048; 81003; 84484; 85025; 93005; 96361; 96374; 99283; 99284; G0378; C9113